=== PATIENT | male | born 1950 | race Caucasian/White ===

== ENCOUNTER 2019-08-27 12:17 | Inpatient (IN) | payer BC ==
[2019-08-27] MEDS ORDERED: LIDOCAINE VISCOUS 2% ORAL/TOP 20 ML UNIT-DOSE CUP MM ONE (12:57)
[2019-08-27] MEDS ORDERED: FAMOTIDINE 20 MG/50 ML IVPB 20 MG/50 ML MG IVPB ONE ×2 (12:57→13:06)
[2019-08-27] MEDS ORDERED: PANTOPRAZOLE SODIUM 40 MG VIAL IVPUSH ONE (12:57)
[2019-08-27] MEDS ORDERED: PANTOPRAZOLE SODIUM 40 MG/100 ML BAG IVPB ONE (13:06)
[2019-08-27] MEDS ORDERED: LIDOCAINE VISCOUS 2% ORAL/TOP 20 ML UNIT-DOSE CUP ONE (13:06)
[2019-08-27] MEDS ORDERED: MAG HYDROX/AL HYDROX/SIMETH 30 ML UNIT-DOSE CUP ONE (13:16)
[2019-08-27 13:21] LABS: BASO % 0.9 % (0-2.0); EOS % 2.4 % (0-4.5); HEMATOCRIT 42.8 % (35.4-49); HEMOGLOBIN 14.4 GM/dL (11.7-16.9); MCH 30.2 pg (25.7-33.7); MCHC 33.6 g/dl (32.0-35.9); MEAN CELL VOLUME 89.9 fl (80-96); MEAN PLT VOLUME 8.5 fl (7.5-11.1); NEUT % 43.7 % (42.8-82.8); PLATELET COUNT 260 K/MM3 (134-434); RBC 4.76 M/mm3 (4.00-5.60); RDW 12.6 % (11.9-15.9); WHITE BLOOD COUNT 9.8 K/mm3 (4.0-10.0)
[2019-08-27] MEDS ORDERED: MAG HYDROX/AL HYDROX/SIMETH 30 ML UNIT-DOSE CUP PO ONE (13:34)
[2019-08-27 13:43] LABS: INR 1.47 (0.83-1.09); PROTHROMBIN TIME (PATIENT) 17.4 SEC (9.7-13.0)
[2019-08-27 13:45] LABS: ACTIVATED PTT 48.1 SECONDS (25.2-36.5)
[2019-08-27 13:50] LABS: ALBUMIN 3.6 g/dl (3.4-5.0); BILIRUBIN,TOTAL 0.5 mg/dL (0.2-1); BLOOD UREA NITROGEN 16.9 mg/dL (7-18); CALCIUM 9.1 mg/dL (8.5-10.1); CREATININE 1.3 mg/dL (0.55-1.3); POTASSIUM 4.2 mmol/L (3.5-5.1); TOT PROT 7.3 g/dl (6.4-8.2)
[2019-08-27 13:53] LABS: MAGNESIUM 2.1 mg/dL (1.8-2.4)
--- NOTE | 2019-08-27 14:10 | PDOC ---
Documentation entered by David Iraheta SCRIBE, acting as scribe for Fawad Ayala MD. Fawad Ayala MD: This documentation has been prepared by the Esequiel glover Daniel, SCRIBE, under my direction and personally reviewed by me in its entirety. I confirm that the documentation accurately reflects all work, treatment, procedures, and medical decision making performed by me. History of Present Illness - General Chief Complaint: Pain, Acute Stated Complaint: ABD PAIN Time Seen by Provider: 08/27/19 12:37 History Source: Patient Exam Limitations: No Limitations - History of Present Illness Initial Comments: 08/27/19 13:08 The patient is a 69 year old male with a past medical history of HTN, HL, afib on eliquis, diverticulitis, and GERD here today for evaluation of 2 weeks epigastric pain. The patient reports that his epigastric pain started 2 weeks ago and began as a mild pain but became worse today rating it as an 8/10 and describes it as localized to the epigastrum, sharp, non radiating and constant. He doesnt note any relation between his pain and eating but does note some nausea and decreased appetite. He notes that he has been taking pepto bismol with mild relief and prevacid. He also notes that he has occasional palpitations and intermittent shortness of breath for two weeks for which his e commerce specialist placed him on a holter monitor. He notes some dark stools but attributes this to his peptobismol use. Patient denies headache, dizziness, focal weakness/numbness. Denies fever, chills. Denies chest pain. Denies vomiting, diarrhea. Denies lower extremity edema. Allergies: levofloxacin PCP: Bishop Castrejon Laundry Tub Maker: Jhonny Mendenhall Past History - Past Medical History Allergies/Adverse Reactions: Allergies Allergy/AdvReac Type Severity Reaction Status Date / Time levofloxacin Allergy Verified 08/27/19 12:27 Home Medications: Ambulatory Orders Atorvastatin Ca [Lipitor] 10 mg PO HS 11/28/11 Ezetimibe [Zetia -] 10 mg PO DAILY 02/17/14 Metronidazole [Flagyl] 500 mg PO Q8H #72 tablet 02/19/14 Guar Gum [Benefiber] 1 each PO BID #0 packet 11/08/15 Lisinopril/Hydrochlorothiazide [Lisinopril-Hctz 20-12.5 mg Tab] 1 each PO DAILY 11/08/15 Metoprolol Succinate [Toprol Xl -] 25 mg PO DAILY 11/08/15 Anemia: No Asthma: No Cancer: Yes (bladder) Cardiac Disorders: Yes (arrythmia, a-fib) CVA: No COPD: Yes CHF: No Dementia: No Diabetes: No GI Disorders: Yes (diverticulitis, GERD) Disorders: No HTN: Yes Hypercholesterolemia: Yes Liver Disease: No Seizures: No Thyroid Disease: No - Surgical History Abdominal Surgery: No (bladder) Appendectomy: No Cardiac Surgery: No Cholecystectomy: No Lung Surgery: No Neurologic Surgery: No Orthopedic Surgery: No - Immunization History Immunization Up to Date: Yes - Psycho Social/Smoking Cessation Hx Smoking Status: Yes Smoking History: Never smoked Have you smoked in the past 12 months: Yes Number of Cigarettes Smoked Daily: 20 Information on smoking cessation initiated: No 'Breaking Loose' booklet given: 02/17/14 Hx Alcohol Use: No Drug/Substance Use Hx: No Substance Use Type: None Hx Substance Use Treatment: No Review of Systems - Review of Systems Able to Perform ROS?: Yes Comments:: 08/27/19 13:08 GENERAL/CONSTITUTIONAL: +decreased appetite. No fever or chills. No weakness. HEAD, EYES, EARS, NOSE AND THROAT: No change in vision. No ear pain or discharge. No sore throat. GASTROINTESTINAL: +nausea. +epigastric pain. No vomiting, diarrhea or constipation. GENITOURINARY: No dysuria, frequency, or change in urination. CARDIOVASCULAR: +shortness of breath. No chest pain. RESPIRATORY: No cough, wheezing, or hemoptysis. MUSCULOSKELETAL: No joint or muscle swelling or pain. No neck or back pain. SKIN: No rash NEUROLOGIC: No headache, vertigo, loss of consciousness, or change in strength/ sensation. ENDOCRINE: No increased thirst. No abnormal weight change. HEMATOLOGIC/LYMPHATIC: No anemia, easy bleeding, or history of blood clots. ALLERGIC/IMMUNOLOGIC: No hives or skin allergy. *Physical Exam - Vital Signs Last Vital Signs Temp Pulse Resp BP Pulse Ox 97.7 F 50 L 18 169/62 100 08/27/19 12:25 08/27/19 12:25 08/27/19 12:25 08/27/19 12:25 08/27/19 12:25 - Physical Exam Comments: 08/27/19 13:09 GENERAL: Awake, alert, and fully oriented, in no acute distress HEAD: No signs of trauma EYES: PERRLA, EOMI, sclera anicteric, conjunctiva clear ENT: Oropharynx clear without exudates. Moist mucosa NECK: Normal ROM, supple, no lymphadenopathy, JVD, or masses LUNGS: Breath sounds equal, clear to auscultation bilaterally. No wheezes, and no crackles HEART: +holter monitor on left upper chest. +bradycardic but regular rhythm, normal S1 and S2, no murmurs, rubs or gallops ABDOMEN: +epigastric tenderness to palpation. Otherwise, soft, normoactive bowel sounds. Neg murphys sign. No guarding, no rebound. No masses EXTREMITIES: Normal range of motion, no edema. No clubbing or cyanosis. No cords , erythema, or tenderness NEUROLOGICAL: Normal speech, cranial nerves intact, equal strength and sensation b/l SKIN: Warm, Dry, normal turgor, no rashes or lesions noted. Heart Score/ECG Review #1 08/27/19 14:03 Twelve-lead EKG was performed and reviewed by me. Sinus bradycardia, rate 47. Left axis deviation. Incomplete right bundle. Sub-[address] depressions in V4 to V6. Artifact in lead V3, but no obvious ST elevations elsewhere. T wave inversions in 3 and aVF. When compared to previous EKG from 2 years ago, no significant changes. ED Treatment Course - LABORATORY CBC & Chemistry Diagram: 08/27/19 12:40 08/27/19 12:40 - ADDITIONAL ORDERS Additional order review: 08/27/19 12:40 RBC 4.76 MCV 89.9 MCHC 33.6 RDW 12.6 MPV 8.5 Neutrophils % 43.7 Lymphocytes % 46.0 H Monocytes % 7.0 Eosinophils % 2.4 Basophils % 0.9 - RADIOLOGY Radiology Studies Ordered: Category Date Time Status CHEST X-RAY PORTABLE* [RAD] Stat Radiology 08/27/19 12:55 Completed ABDOMEN US -LIMITED [US] Stat Ultrasound 08/27/19 13:33 Ordered - Medications Given in the ED: ED Medications Discontinued Medications Generic Name Dose Route Start Last Admin Trade Name Freq PRN Reason Stop Dose Admin Famotidine/Sodium Chloride 20 mg in 50 mls @ 100 mls/hr 08/27/19 12:57 13:18 Pepcid 20 Mg Premixed Ivpb - IVPB 08/27/19 13:26 100 mls/hr ONCE ONE Administration Lidocaine HCl 20 ml 08/27/19 12:57 08/27/19 13:18 Xylocaine 2% Viscous Oral - MM 08/27/19 12:58 20 ml ONCE ONE Administration Pantoprazole Sodium 40 mg 08/27/19 12:57 08/27/19 13:18 Protonix Iv IVPUSH 08/27/19 12:58 40 mg ONCE ONE Administration Medical Decision Making - Medical Decision Making 08/27/19 14:08 69-year-old male with a history of A. fib on Eliquis, hypertension, hyperlipidemia, GERD presents emergency department with 2 weeks of epigastric pain associated with poor appetite with epigastric pain worse today. Vitals within normal limits. Exam with epigastric tenderness palpation. Differential includes peptic ulcer disease versus gastritis versus cholecystitis versus pancreatitis versus acute coronary syndrome. Plan for labs, chest x-ray, right upper quadrant ultrasound, symptom control, reassess. 08/27/19 15:03 Work-up thus far consistent with pancreatitis, [id number] More IV fluids ordered. Case discussed with pattern fitter Dr. Simmons who recommends a CT scan with IV contrast which has been ordered. Patient has been updated of results, declines any pain medications at this time. Case discussed with Dr. Reyna, patient accepted for admission Case discussed in detail with admitting physician including history, physical exam and ancillary studies. Admitting physician has assumed care for the patient, will follow all pending diagnostics and will complete the evaluation and treatment. Discharge - Discharge Information Problems reviewed: Yes Clinical Impression/Diagnosis: Pancreatitis, Abdominal pain, Nausea Condition: Stable - Follow up/Referral Referrals: Bishop Castrejon MD [Primary Care Provider] - - Patient Discharge Instructions - Post Discharge Activity
[2019-08-27] MEDS ORDERED: SODIUM CHLORIDE 1,000 ML IV STA (14:53)
[2019-08-27 15:51] LABS: EPI CELLS 0.1 /HPF (0-5/HPF); HYALINE CASTS 0 /lpf (0-8); URINE APPEARANCE CLEAR; URINE BACTERIA 0.2 /hpf (NEGATIVE); URINE BILIRUBIN NEGATIVE (NEGATIVE); URINE COLOR YELLOW; URINE GLUCOSE (UA) 3+ (NEGATIVE); URINE KETONE NEGATIVE (NEGATIVE); URINE LEUK ESTERASE NEGATIVE (NEGATIVE); URINE NITRITE NEGATIVE (NEGATIVE); URINE PROTEIN NEGATIVE (NEGATIVE); URINE RBC 1 /hpf (0-4); URINE UROBILINOGEN 0.2 mg/dL (0.2-1.0); URINE WBC 0 /hpf (0-5)
[2019-08-27 17:38] VITALS: BMI 33.5
--- NOTE | 2019-08-27 19:58 | HP ---
Admitting History and Physical - Primary Care Physician PCP: Bishop Csatrejon - Admission History of Present Illness: Pt seen/ examined chart reviewed In summary/ Er records The patient is a 69 year old male with a past medical history of HTN, HL, afib on eliquis, diverticulitis, Bladder ca -- s/p TURBt, NIDDM-Diet Controlled and GERD here today for evaluation of 2 weeks epigastric pain. The patient reports that his epigastric pain started 2 weeks ago and began as a mild pain but became worse today rating it as an 8/10 and describes it as localized to the epigastrum, sharp, non radiating and constant. He doesnt note any relation between his pain and eating but does note some nausea and decreased appetite. He notes that he has been taking pepto bismol with mild relief and prevacid. He also notes that he has occasional palpitations and intermittent shortness of breath for two weeks for which his aluminum siding mechanic placed him on a holter monitor. He notes some dark stools but attributes this to his peptobismol use. Patient denies headache, dizziness, focal weakness/numbness. Denies fever, chills. Denies chest pain. Denies vomiting, diarrhea. Denies lower extremity edema. Pt diagnosed with acute pancreatitis kept npo/ fluids/ pain meds given Better History Source: Patient, Medical Record Limitations to Obtaining History: No Limitations - Past Medical History Cardiovascular: Yes: AFIB, HTN, Hyperlipdemia Pulmonary: Yes: COPD Gastrointestinal: Yes: Diverticulosis, Diverticulitis - Smoking History Smoking history: Former smoker Have you smoked in the past 12 months: Yes Aproximately how many cigarettes per day: 20 - Alcohol/Substance Use Hx Alcohol Use: Yes (casual) - Social History History of Recent Travel: No Home Medications - Allergies Allergies/Adverse Reactions: Allergies Allergy/AdvReac Type Severity Reaction Status Date / Time levofloxacin Allergy Verified 08/27/19 12:27 - Home Medications Home Medications: Ambulatory Orders Atorvastatin Ca [Lipitor] 10 mg PO HS 11/28/11 Ezetimibe [Zetia -] 10 mg PO DAILY 02/17/14 Metronidazole [Flagyl] 500 mg PO Q8H #72 tablet 02/19/14 Guar Gum [Benefiber] 1 each PO BID #0 packet 11/08/15 Lisinopril/Hydrochlorothiazide [Lisinopril-Hctz 20-12.5 mg Tab] 1 each PO DAILY 11/08/15 Metoprolol Succinate [Toprol Xl -] 25 mg PO DAILY 11/08/15 Review of Systems - Review of Systems Constitutional: reports: Weakness. denies: Loss of Appetite Eyes: reports: No Symptoms HENT: reports: No Symptoms Neck: reports: No Symptoms Cardiovascular: reports: No Symptoms Respiratory: reports: No Symptoms Gastrointestinal: reports: Abdominal Pain Genitourinary: reports: No Symptoms Psychiatric: reports: No Symptoms Physical Examination Vital Signs: Vital Signs Temperature 98.3 F 08/27/19 17:27 Pulse Rate 48 L 08/27/19 17:27 Respiratory Rate 18 08/27/19 17:27 Blood Pressure 135/77 08/27/19 17:27 O2 Sat by Pulse Oximetry (%) 100 08/27/19 18:03 Constitutional: Yes: No Distress, Calm Eyes: Yes: Conjunctiva Clear Neck: Yes: Supple Cardiovascular: Yes: Regular Rate and Rhythm Respiratory: Yes: CTA Bilaterally Gastrointestinal: Yes: Soft, Tenderness, Epigastrium. No: Tenderness Edema: No Neurological: Yes: Alert Psychiatric: Yes: Alert Labs: CBC, BMP 08/27/19 12:40 08/27/19 12:40 Imaging - Results Chest X-ray: Report Reviewed Cat Scan: Pending EKG: Other Other: Other (u/s - NOted) Problem List - Problems (1) Paroxysmal A-fib Code(s): I48.0 - PAROXYSMAL ATRIAL FIBRILLATION (2) HTN (hypertension) Code(s): I10 - ESSENTIAL (PRIMARY) HYPERTENSION (3) Pancreatitis Code(s): K85.90 - ACUTE PANCREATITIS WITHOUT NECROSIS OR INFECTION, UNSP (4) Diabetes Code(s): E11.9 - TYPE 2 DIABETES MELLITUS WITHOUT COMPLICATIONS (5) Overweight Code(s): E66.3 - OVERWEIGHT (6) Bladder cancer Code(s): C67.9 - MALIGNANT NEOPLASM OF BLADDER, UNSPECIFIED Assessment/Plan Discussed NPO Fluids monitor Labs Monitor bgm Pain control i/v protonix Gi/Surgical Eval Cardiology f/u Pt current home meds are-As per Pt Lipitor 20 mg Multaq 400 mg bid Eliquis 5 mg bid Bystolic 5 mg Azetimibe 10 mg Will follow --
[2019-08-27] MEDS: MORPHINE SULFATE 2 MG/ML VIAL IVPUSH PRN (20:07)
--- NOTE | 2019-08-27 20:08 | HP ---
DATE OF ADMISSION: 08/27/2019 DATE OF DICTATION: 08/27/2019 REFERRING PHYSICIAN: Efraín Andrew MD REASON FOR ADMISSION: Abdominal pain; acute pancreatitis. BRIEF HISTORY: This is a 69-year-old gentleman who presented to the emergency room today with acute onset of rather sharp epigastric pain causing him to double over. The patient, upon closer questioning, had a one- to two-week history of mild generalized dyspepsia that he was managing on his own with Pepto-Bismol and Pepcid. He said the Pepto-Bismol and Pepcid gave him some mild relief. Two days ago, prior to admission, he was noted to be mildly hypotensive with a systolic blood pressure of 100+/60. This was not associated with any acute onset of abdominal pain, nausea or vomiting. The patient denies fever, chills or sweats. He denies extreme nausea last week. He has had mild generalized decreased appetite for the past week, given his dyspeptic-type symptoms. In the emergency room, he underwent an ultrasound of the abdomen that demonstrated no wall thickening or gallstones. The patient is known to have had a similar event approximately 15 years ago, at which time he was told he has sludge within his gallbladder. In the emergency room, he had a white count of 9.8, a normal hemoglobin, as well as a normal platelet count. His chemistries demonstrated a mildly low sodium of 133. His transaminases are within normal limits as are his alkaline phosphatase and bilirubin. He is noted to have a lipase of 1700. His glucose was elevated at 363. A CT scan of the abdomen and pelvis was reviewed. This demonstrated no obvious significant findings. However, the official report is not available at this time. PAST MEDICAL HISTORY: The patient has a history of atrial fibrillation and is on Eliquis. Due to his hypotensive finding several days ago, his novelty maker had placed him on a two-week continuous Holter monitor. The patient denies any palpitations or chest pain in the past several weeks. He has no history of syncope or dizziness. He denies trauma to the abdominal region. He also has a history of hyperlipidemia, hypertension, diverticulitis and peptic ulcer disease. PAST SURGICAL HISTORY: The patient has had a bladder polyp removed via cystoscopy. He has had no abdominal surgeries. ALLERGIES: LEVOFLOXACIN. MEDICATIONS: Lipitor, Zetia, Flagyl, Benefiber, lisinopril and Toprol. 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 He does not smoke. He drinks very rarely. With regard to this attack of pancreatitis, his last drink was approximately one week ago and consisted of one-half glass of wine. PHYSICAL EXAMINATION: Abdomen: The abdomen is mildly obese, soft. There is epigastric tenderness with guarding but no rebound. The remainder of his abdominal examination is unremarkable. IMPRESSION/PLAN: Acute pancreatitis. This is a 69-year-old gentleman admitted with acute pancreatitis. The etiology of his pancreatitis is not entirely clear at this point. The two studies he has had do not demonstrate any evidence of pancreatitis secondary to biliary disease. However, with his history of gallbladder sludge, it is not entirely ruled out. The most likely etiology of his pancreatitis will either be drug-related (medications) or idiopathic. In either event, the patient should be managed for his pancreatitis medically. He clearly does not require any acute surgical intervention. At this point, I do not feel that the patient will need any acute intervention. I think he will continue to improve medically. I will leave it up to the care partner to decide whether or not the patient should undergo an MRCP to further evaluate his gallbladder and also, given his history of sludge 15 years ago, whether or not to consider him for an endoscopic ultrasound at this time as well. I will be available to see this gentleman on a p.r.n. basis. Thank you for allowing me to participate in the care of your patient. Should you have any questions, please feel free to call me directly. Marietta VENEGAS [id number] cc: MD Debbie Hansen DO Tina Mathews, MD
[2019-08-27] MEDS: SODIUM CHLORIDE 1,000 ML IV SCH (20:10)
--- NOTE | 2019-08-28 00:49 | CONS ---
DATE OF CONSULTATION: DATE OF DICTATION: 08/28/2019 GASTROENTEROLOGY CONSULTATION HISTORY OF PRESENT ILLNESS: The patient is a 69-year-old man with a past medical history of hypertension, hyperlipidemia, atrial fibrillation on Eliquis, diverticulitis in the past as well as reflux disease who presents to the hospital with intermittent 2 weeks of epigastric abdominal pain. He states the pain was not radiating, however constant, with some associated nausea. Apparently, he was taking Pepto-Bismol with some relief of his symptoms until today, at which time his epigastric pain worsened, prompting him to come to the emergency room for further evaluation. He denies fevers, chills, change in the bowel habit, and blood in the stool or hematemesis. He states he has a history of being told he had gallbladder sludge, however no history of pancreatitis in the past. No new herbal supplements or medications as an outpatient and does not drink any alcohol. PAST MEDICAL AND SURGICAL HISTORY: As listed in the HPI. ALLERGIES: LEVOFLOXACIN. HOME MEDICATIONS: Reviewed and include Lipitor, Zetia, Benefiber, lisinopril, hydrochlorothiazide, Toprol XL. REVIEW OF SYSTEMS: As per the HPI. PHYSICAL EXAMINATION: Vital Signs: Temperature 98, pulse 49, respiratory rate 12, blood pressure 150/76, pulse oximetry 98% on room air. General: In no acute distress. HEENT: Anicteric sclerae. Cardiovascular: S1, S2, regular rate and rhythm. Lungs: Bilaterally clear to auscultation. Abdomen: Soft, nontender, except to deep palpation in the epigastrium without rebound or guarding. Extremities: No edema. LABORATORY: White blood cell count 9.8, hemoglobin and hematocrit 14/42, MCV 89, platelet count 260, INR 1.47. Sodium 133, potassium 4.2, BUN/creatinine 16/1.3, glucose 363, AST 17, ALT 32, alkaline phosphatase 104, lipase is 1747. Urine: 3+ glucose, 1+ blood. He had abdominal ultrasound, which revealed hepatomegaly, fatty infiltration versus hepatocellular disease, no gallstones were identified, and no biliary duct dilatation. IMPRESSION: Epigastric abdominal pain with an abnormal lipase, most likely consistent with acute pancreatitis. Will need to follow up CT scan. Preliminarily appears to be normal without any biliary disease, which would need to be excluded as an etiology of his pancreatitis. Would also order a lipid profile IGG 4 level and pending results of the CT scan may need further evaluation with a magnetic resonance cholangiopancreatography. Trend liver tests daily as hospitalized. N.p.o. except ice chips. Intravenous fluids at 150 to 175 mL per hour, monitor volume status and weight. Surgery evaluation. Continue proton pump inhibitor therapy. Will follow. DO DEB CESAR/[id number]
[2019-08-28] MEDS: SODIUM CHLORIDE 1,000 ML IV SCH ×2 (03:00→20:11)
[2019-08-28] MEDS: INSULIN SLIDING SCALE (NOVOLOG) 1 VIAL SQ SCH ×2 (06:18→17:14)
[2019-08-28 08:17] LABS: BASO % 0.8 % (0-2.0); EOS % 3.3 % (0-4.5); HEMATOCRIT 39.6 % (35.4-49); HEMOGLOBIN 13.6 GM/dL (11.7-16.9); LYMPH % 46.6 % (8-40); MCH 30.5 pg (25.7-33.7); MCHC 34.3 g/dl (32.0-35.9); MEAN CELL VOLUME 88.8 fl (80-96); MEAN PLT VOLUME 8.7 fl (7.5-11.1); MONO % 5.8 % (3.8-10.2); NEUT % 43.5 % (42.8-82.8); PLATELET COUNT 213 K/MM3 (134-434); RBC 4.46 M/mm3 (4.00-5.60); RDW 12.7 % (11.9-15.9)
[2019-08-28 08:54] LABS: ALBUMIN 3.1 g/dl (3.4-5.0); BILIRUBIN,TOTAL 0.7 mg/dL (0.2-1); BLOOD UREA NITROGEN 11.4 mg/dL (7-18); CALCIUM 8.8 mg/dL (8.5-10.1); CREATININE 0.9 mg/dL (0.55-1.3); POTASSIUM 3.9 mmol/L (3.5-5.1); TOT PROT 6.2 g/dl (6.4-8.2)
--- NOTE | 2019-08-28 09:43 | CON.CARD ---
Consult Consult Specialty:: Cardiology Referred by:: Bishop Castrejon MD Reason for Consultation:: Epigastric pain, palpitations, dyspnea - History of Present Illness Chief Complaint: Epigastric pain, dyspnea, palpitations History of Present Illness: The patient is a 69 year old male with a past medical history of HTN, HL, paroxysmal afib/flutter [id number] on eliquis, diastolic dysfunction, diverticulitis, Bladder ca -- s/p TURBt, NIDDM-Diet Controlled and GERD most recently seen in office 08/25/2019 for postural dizziness, presented for evaluation of 2 weeks epigastric pain. The patient reports that his epigastric pain started 2 weeks ago and began as a mild pain but became worse today rating it as an 8/10 and describes it as localized to the epigastrum, sharp, non radiating and constant. He doesnt note any relation between his pain and eating but does note some nausea and decreased appetite. He notes that he has been taking pepto bismol with mild relief and prevacid. He also notes that he has occasional palpitations and intermittent shortness of breath for two weeks for which his lab coordinator placed him on a holter monitor. He notes some dark stools but attributes this to his peptobismol use. Patient denies headache, dizziness, focal weakness/numbness. Denies fever, chills. Denies chest pain. Denies vomiting, diarrhea. Denies lower extremity edema. Pt diagnosed with acute pancreatitis with elevated amylase, lipase, Ha1c elevated. kept npo/ fluids/ pain meds given and feels improved, abd&pelvic CT readings pending. - History Source History Provided By: Patient Limitations to Obtaining History: No Limitations - Past Medical History Cardio/Vascular: Yes: AFIB, HTN, Hyperlipdemia Pulmonary: Yes: COPD Gastrointestinal: Yes: Diverticulosis, Diverticulitis Additional Medical History: carotid artery stenosis r>left - Alcohol/Substance Use Hx Alcohol Use: Yes (casual) - Smoking History Smoking history: Former smoker Have you smoked in the past 12 months: Yes Aproximately how many cigarettes per day: 20 - Social History History of Recent Travel: No Home Medications - Allergies Allergies/Adverse Reactions: Allergies Allergy/AdvReac Type Severity Reaction Status Date / Time levofloxacin Allergy Verified 08/27/19 12:27 - Home Medications Home Medications: Ambulatory Orders Atorvastatin Ca [Lipitor] 10 mg PO DAILY 11/28/11 Ezetimibe [Zetia -] 10 mg PO DAILY 02/17/14 Apixaban [Eliquis] 2.5 mg PO 08/28/19 Dronedarone HCl [Multaq] 400 mg PO BID 08/28/19 Nebivolol [Bystolic -] 5 mg PO BID 08/28/19 Review of Systems - Review of Systems Gastrointestinal: reports: Abdominal Pain, Nausea, Vomiting Vital Signs: Vital Signs Temperature 97.7 F 08/28/19 05:30 Pulse Rate 58 L 08/28/19 05:30 Respiratory Rate 20 08/28/19 05:30 Blood Pressure 155/87 08/28/19 05:30 O2 Sat by Pulse Oximetry (%) 98 08/27/19 21:00 Constitutional: Yes: No Distress, Calm Neck: Yes: Supple Respiratory: Yes: Regular, CTA Bilaterally Gastrointestinal: Yes: Soft, Hypoactive Bowel Sounds, Tenderness, Epigastrium Cardiovascular: Yes: Regular Rate and Rhythm JVD: No Carotid Bruit: No Heart Sounds: Yes: S1, S2 Edema: No - Other Data Labs, Other Data: CBC, BMP 08/28/19 07:40 08/28/19 07:40 INR, PTT INR 1.47 (0.83-1.09) H 08/27/19 12:40 Troponin, BNP 08/27/19 12:40 Troponin I < 0.02 B-Natriuretic Peptide 131.0 H Troponin, BNP 08/27/19 12:40 Troponin I < 0.02 B-Natriuretic Peptide 131.0 H SB @ 47 LAD similar to previous Ejection Fraction %: LVEF > or = 40 % Imaging - Results Chest X-ray: Report Reviewed (NAD) Problem List - Problems (1) Type 2 diabetes mellitus Code(s): E11.9 - TYPE 2 DIABETES MELLITUS WITHOUT COMPLICATIONS Qualifiers: Diabetes mellitus nursing home insulin use: without regional intermodal truck driver use (2) Combined hyperlipidemia associated with type 2 diabetes mellitus Code(s): E11.69 - TYPE 2 DIABETES MELLITUS WITH OTHER SPECIFIED COMPLICATION; E78.2 - MIXED HYPERLIPIDEMIA (3) Coronary artery calcification Code(s): I25.10 - ATHSCL HEART DISEASE OF [place] CORONARY ARTERY W/O ANG PCTRS; I25.84 - CORONARY ATHEROSCLEROSIS DUE TO CALCIFIED CORONARY LESION (4) HTN (hypertension) Code(s): I10 - ESSENTIAL (PRIMARY) HYPERTENSION Qualifiers: Hypertension type: essential hypertension Qualified Code(s): I10 - Essential (primary) hypertension (5) Pancreatitis Code(s): K85.90 - ACUTE PANCREATITIS WITHOUT NECROSIS OR INFECTION, UNSP Qualifiers: Chronicity: acute (6) Paroxysmal A-fib Code(s): I48.0 - PAROXYSMAL ATRIAL FIBRILLATION (7) Diastolic dysfunction Code(s): I51.89 - OTHER ILL-DEFINED HEART DISEASES Assessment/Plan 03/26/2017 Echo: cLVH LV dilatation, normal LV systolic fxn, normal RV size and fxn, mild LAE, tr-mild MR, tr TR RVSP 44 mmHg MPI: Diaphragmatic attenuation, no ischemia, normal LVEF 65% 04/30-05/30/2017 Cardionet episodes of PAF with RVR (6) Bladder cancer Code(s): C67.9 - MALIGNANT NEOPLASM OF BLADDER, UNSPECIFIED Assessment/Plan 1. Acute pancreatitis 2. PAF -> SR on Eliquis 3. Type 2 DM not well-controlled 4. HTN 5. Hyperlipidemia 6. Diastolic dysfunction 7. Coronary artery calcification with MPI negative for ischemia P:1. NPO, IVF, analgesia, trend amylase, lipase, LFts, empiric abx, protonix, GI and surgery input 2. Continue Lipitor 20 qd, multaq 400 bid, eliquis 5 bid, Bystolic 5 qd, zetia 10 qd, optimize glycemic control 3. F/u abd/pelvic CT, may need f/u MRCP, will have to remove Zio patch then 4. Thank you for consultative opportunity
[2019-08-28] MEDS: PANTOPRAZOLE SODIUM 40 MG VIAL IVPUSH SCH (10:50)
--- NOTE | 2019-08-28 12:40 | EKG ---
Test Reason : Blood Pressure : / mmHG Vent. Rate : 045 BPM Atrial Rate : 045 BPM P-R Int : 150 ms QRS Dur : 106 ms QT Int : 486 ms P-R-T Axes : -02 -42 -45 degrees QTc Int : 420 ms SINUS BRADYCARDIA LEFT AXIS DEVIATION INCOMPLETE RIGHT BUNDLE BRANCH BLOCK ABNORMAL ECG WHEN COMPARED WITH ECG OF 24-OCT-2016 08:49, T WAVE INVERSION NOW EVIDENT IN ANTERIOR LEADS Confirmed by GERI JASSO, SAMY ([id number]) on 08/28/2019 12:39:58 PM Referred By: Confirmed By:SAMY NEVAREZ MD
[2019-08-28] MEDS: APIXABAN 2.5 MG TABLET PO SCH ×2 (13:16→22:25)
[2019-08-28] MEDS: NEBIVOLOL 5 MG TABLET (FP) PO SCH ×2 (13:16→22:25)
--- NOTE | 2019-08-28 15:46 | PN ---
Progress Note (short form) - Note Progress Note: Abdominal pain is better no nausea no diarrhea wants to eat Vital Signs - 24 hr 08/27/19 08/27/19 08/27/19 16:16 17:27 18:03 Temperature 98.3 F Pulse Rate 48 L Pulse Rate [ 52 L Radial] Respiratory 20 18 Rate Blood Pressure 135/77 Blood Pressure 151/52 L [Left Arm] O2 Sat by Pulse 100 100 Oximetry (%) 08/27/19 08/27/19 08/28/19 20:00 21:00 00:00 Temperature 98.6 F Pulse Rate 49 L 52 L Pulse Rate [ Radial] Respiratory 18 20 Rate Blood Pressure 153/76 Blood Pressure [Left Arm] O2 Sat by Pulse 98 Oximetry (%) 08/28/19 08/28/19 08/28/19 05:30 09:00 10:00 Temperature 97.7 F 98 F Pulse Rate 58 L 55 L Pulse Rate [ Radial] Respiratory 20 20 Rate Blood Pressure 155/87 164/86 Blood Pressure [Left Arm] O2 Sat by Pulse 100 Oximetry (%) 08/28/19 12:56 Temperature 98 F Pulse Rate 52 L Pulse Rate [ Radial] Respiratory 18 Rate Blood Pressure 158/81 Blood Pressure [Left Arm] O2 Sat by Pulse Oximetry (%) Current Medications Generic Name Dose Route Start Last Admin Trade Name Freq PRN Reason Stop Dose Admin Apixaban 5 mg 08/28/19 11:45 08/28/19 13:16 Eliquis - PO 5 mg BID TONJA Administration Dronedarone 400 mg 08/28/19 17:30 Multaq - PO BIDWM TONJA Sodium Chloride 1,000 mls @ 120 mls/hr 08/27/19 20:00 08/28/19 03:00 Normal Saline - IV 120 mls/hr ASDIR TONJA Administration Insulin Aspart 1 vial 08/28/19 07:00 08/28/19 06:18 Novolog Vial Sliding Scale - SQ 6 units BIDAC TONJA Administration Protocol Morphine Sulfate 2 mg 08/27/19 16:52 08/27/19 20:07 Morphine Sulfate IVPUSH 2 mg Q6H PRN Administration PAIN LEVEL 6-10 Nebivolol 5 mg 08/28/19 11:45 08/28/19 13:16 Bystolic - PO 5 mg BID TONJA Administration Pantoprazole Sodium 40 mg 08/28/19 10:00 08/28/19 10:50 Protonix Iv IVPUSH 40 mg DAILY TONJA Administration Laboratory Results - last 24 hr 08/27/19 08/27/19 08/28/19 13:37 21:15 05:35 WBC RBC Hgb Hct MCV MCH MCHC RDW Plt Count MPV Absolute Neuts (auto) Neutrophils % Lymphocytes % Monocytes % Eosinophils % Basophils % Nucleated RBC % Sodium Potassium Chloride Carbon Dioxide Anion Gap BUN Creatinine Est GFR (CKD-EPI)AfAm Est GFR (CKD-EPI)NonAf POC Glucometer 265 Random Glucose Hemoglobin A1c % Calcium Total Bilirubin AST ALT Alkaline Phosphatase Total Protein Albumin Triglycerides Total Amylase Lipase TSH Urine Color Yellow Urine Appearance Clear Urine pH 5.0 Ur Specific [place] 1.020 Urine Protein Negative Urine Glucose (UA) 3+ H Urine Ketones Negative Urine Blood 1+ H Urine Nitrite Negative Urine Bilirubin Negative Urine Urobilinogen 0.2 Ur Leukocyte Esterase Negative Urine WBC (Auto) 0 Urine RBC (Auto) 1 Urine Casts (Auto) 0 U Epithel Cells (Auto) 0.1 Urine Bacteria (Auto) 0.2 Blood Type A POSITIVE Antibody Screen Negative 08/28/19 08/28/19 08/28/19 07:40 07:40 07:40 WBC 8.0 RBC 4.46 Hgb 13.6 Hct 39.6 MCV 88.8 MCH 30.5 MCHC 34.3 RDW 12.7 Plt Count 213 MPV 8.7 Absolute Neuts (auto) 3.5 Neutrophils % 43.5 Lymphocytes % 46.6 H Monocytes % 5.8 Eosinophils % 3.3 Basophils % 0.8 Nucleated RBC % 0 Sodium 139 Potassium 3.9 Chloride 105 Carbon Dioxide 28 Anion Gap 7 L BUN 11.4 Creatinine 0.9 Est GFR (CKD-EPI)AfAm 101.36 Est GFR (CKD-EPI)NonAf 87.45 POC Glucometer Random Glucose 236 H Hemoglobin A1c % 11.2 H Calcium 8.8 Total Bilirubin 0.7 AST 15 ALT 28 Alkaline Phosphatase 90 Total Protein 6.2 L Albumin 3.1 L Triglycerides 141 Total Amylase 148 H Lipase 1796 H TSH 1.67 D Urine Color Urine Appearance Urine pH Ur Specific [place] Urine Protein Urine Glucose (UA) Urine Ketones Urine Blood Urine Nitrite Urine Bilirubin Urine Urobilinogen Ur Leukocyte Esterase Urine WBC (Auto) Urine RBC (Auto) Urine Casts (Auto) U Epithel Cells (Auto) Urine Bacteria (Auto) Blood Type Antibody Screen S1 S2 Irregular Lungs clear Abd-soft,tender epigastrium, BS+ No edema PLAN start clears per GI-- has seen him earlier today iv fluids pain control no surgical intervention per surgeon restart [facility] eval-- uncontrolled DM Problem List - Problems (1) Abdominal pain Code(s): R10.9 - UNSPECIFIED ABDOMINAL PAIN (2) Combined hyperlipidemia associated with type 2 diabetes mellitus Code(s): E11.69 - TYPE 2 DIABETES MELLITUS WITH OTHER SPECIFIED COMPLICATION; E78.2 - MIXED HYPERLIPIDEMIA (3) Coronary artery calcification Code(s): I25.10 - ATHSCL HEART DISEASE OF [place] CORONARY ARTERY W/O ANG PCTRS; I25.84 - CORONARY ATHEROSCLEROSIS DUE TO CALCIFIED CORONARY LESION (4) Diabetes Code(s): E11.9 - TYPE 2 DIABETES MELLITUS WITHOUT COMPLICATIONS (5) HTN (hypertension) Code(s): I10 - ESSENTIAL (PRIMARY) HYPERTENSION Qualifiers: Hypertension type: essential hypertension Qualified Code(s): I10 - Essential (primary) hypertension (6) Pancreatitis Code(s): K85.90 - ACUTE PANCREATITIS WITHOUT NECROSIS OR INFECTION, UNSP Qualifiers: Chronicity: acute (7) Paroxysmal A-fib Code(s): I48.0 - PAROXYSMAL ATRIAL FIBRILLATION
--- NOTE | 2019-08-28 16:54 | PN.GI ---
GI Progress Note Subjective: No acute events Abdominal pain improved, however, appetite still diminished Describes 25 pound weight loss over the last few months, some intentional, some Mr. yeboah attributes to the diminished appetitis and early satiety he has been experiencing. He denies dysphagia/odynophagia. CT scan was unremarkable - Objective Vital Signs: Vital Signs Temperature 98 F 08/28/19 12:56 Pulse Rate 52 L 08/28/19 12:56 Respiratory Rate 18 08/28/19 12:56 Blood Pressure 158/81 08/28/19 12:56 O2 Sat by Pulse Oximetry (%) 100 08/28/19 09:00 Constitutional: Calm Eyes: No: Sclera Icterus Cardiovascular: Yes: Bradycardia. No: Murmur Respiratory: Yes: CTA Bilaterally Gastrointestinal Inspection: No: Distention ...Auscultate: Yes: Normoactive Bowel Sounds ...Palpate: Yes: Soft, Tenderness (mild TTP epigastrium) ...Percussion: No: Tympanitic Edema: No (No LE edema) Neurological: Yes: Alert Labs: CBC, BMP 08/28/19 07:40 08/28/19 07:40 INR, PTT INR 1.47 (0.83-1.09) H 08/27/19 12:40 Hepatic Panel Total Bilirubin 0.7 mg/dL (0.2-1) 08/28/19 07:40 AST 15 U/L (15-37) 08/28/19 07:40 ALT 28 U/L (13-61) 08/28/19 07:40 Alkaline Phosphatase 90 U/L (45-117) 08/28/19 07:40 Albumin 3.1 g/dl (3.4-5.0) L 08/28/19 07:40 - ....Imaging Cat Scan: Report Reviewed, Image Reviewed Problem List - Problems (1) Abdominal pain Assessment/Plan: Upper abdominal pain along with associated early satiety Clinically improving and tolerating clears CT scan revealed a normal pancreas. Not suggestive of a significant pancreatitis, however, mild pancreatitis may not necessarily show up on CT study Triglycerides normal Mr. Yeboah also wih a Hgb A1C of 11.2 with elevated blood glucose >250 on admission. In setting of uncontrolled DM II, component of gastroparesis could also be playing a role. Ordered UGIS for AM as part evaluation of early satiety. Needs glycemic control Continue PPI for now Code(s): R10.9 - UNSPECIFIED ABDOMINAL PAIN
[2019-08-28] MEDS: DRONEDARONE HCL 400 MG TAB (FP) PO SCH (17:13)
[2019-08-28] MEDS: LOSARTAN POTASSIUM 25 MG TABLET PO SCH (20:11)
[2019-08-28] MEDS: ATORVASTATIN CA 10 MG TABLET (FP) PO SCH (22:25)
[2019-08-28] MEDS: MORPHINE SULFATE 2 MG/ML VIAL IVPUSH PRN (22:26)
[2019-08-29] MEDS: INSULIN SLIDING SCALE (NOVOLOG) 1 VIAL SQ SCH ×4 (06:36→21:28)
[2019-08-29] MEDS ORDERED: hydrALAZINE HCL 20 MG/ML VIAL IVPUSH ONE (06:36)
[2019-08-29 07:00] LABS: INR 1.62 (0.83-1.09); PROTHROMBIN TIME (PATIENT) 19.2 SEC (9.7-13.0)
[2019-08-29 07:02] LABS: ACTIVATED PTT 44.3 SECONDS (25.2-36.5)
[2019-08-29 07:12] LABS: CHOLESTEROL 109 mg/dL (50-200); HDL CHOLESTEROL 38 mg/dL (40-60); LDL CHOLESTEROL (ONLY SJRH) 69 mg/dL (5-100); TRIGLYCERIDES 118 mg/dL (0-150)
[2019-08-29] MEDS ORDERED: PT OWN MED DRAWER 7, Y5N ONE ×2 (08:41→09:40)
[2019-08-29] MEDS: DRONEDARONE HCL 400 MG TAB (FP) PO SCH ×2 (10:21→17:34)
[2019-08-29] MEDS: PANTOPRAZOLE SODIUM 40 MG VIAL IVPUSH SCH (10:22)
[2019-08-29] MEDS: APIXABAN 2.5 MG TABLET PO SCH ×2 (10:22→21:22)
[2019-08-29] MEDS: LOSARTAN POTASSIUM 25 MG TABLET PO SCH (10:23)
[2019-08-29] MEDS: NEBIVOLOL 5 MG TABLET (FP) PO SCH ×2 (10:33→21:22)
--- NOTE | 2019-08-29 10:38 | PN ---
Progress Note (short form) - Note Progress Note: Pt seen/ examined chart reviewed awake/ comfortable just came from upper gi series Vital Signs Temp 18 F L 08/29/19 08:36 Pulse 48 L 08/29/19 10:16 Resp 18 08/29/19 10:16 BP 165/74 08/29/19 10:16 Pulse Ox 96 08/28/19 20:52 Intake & Output 08/28/19 08/28/19 08/29/19 11:59 23:59 11:59 Intake Total 1440 1200 Balance 1440 1200 Intake: IV 1440 960 Normal Saline - 1,000 ml 1440 960 @ 120 mls/hr IV ASDIR [facility] Rx#:[id number] Oral 240 Other: Voiding Method Toilet Toilet # Unmeasured Voids Void 2 2 Bowel Movement No Active Medications Apixaban (Eliquis -) 5 mg PO BID [facility] Last Admin: 08/29/19 10:22 Dose: 5 mg Atorvastatin Calcium (Lipitor -) 10 mg PO HS [facility] Last Admin: 08/28/19 22:25 Dose: 10 mg Dronedarone (Multaq -) 400 mg PO BIDWM [facility] Last Admin: 08/29/19 10:21 Dose: 400 mg Sodium Chloride (Normal Saline -) 1,000 mls @ 120 mls/hr IV ASDIR [facility] Last Admin: 08/28/19 20:11 Dose: 120 mls/hr Insulin Aspart (Novolog Vial Sliding Scale -) 1 vial SQ BIDAC [facility]; Protocol Last Admin: 08/29/19 06:36 Dose: Not Given Insulin Detemir (Levemir Vial) 5 units SQ [facility] Losartan Potassium (Cozaar -) 50 mg PO DAILY [facility] Morphine Sulfate (Morphine Sulfate) 2 mg IVPUSH Q6H PRN PRN Reason: PAIN LEVEL 6-10 Last Admin: 08/28/19 22:26 Dose: 2 mg Nebivolol (Bystolic -) 5 mg PO BID [facility] Last Admin: 08/29/19 10:33 Dose: Not Given Pantoprazole Sodium (Protonix Iv) 40 mg IVPUSH DAILY [facility] Last Admin: 08/29/19 10:22 Dose: 40 mg Today - Labs- Not ordered Physical S1 S2 Irregular Lungs clear Abd-soft,tender epigastrium,-- Improved BS+ No edema PLAN clears per GI- Advance slowly iv fluids pain control no surgical intervention per surgeon restarted [facility] eval-- uncontrolled DM F/u UGISeries Will follow Hold Bystolic due to Bradycardia Increase Cozzar Monitor labs Add Basal Insulin Will follow D/w Dr. Castillo also Problem List - Problems (1) Paroxysmal A-fib Code(s): I48.0 - PAROXYSMAL ATRIAL FIBRILLATION (2) HTN (hypertension) Code(s): I10 - ESSENTIAL (PRIMARY) HYPERTENSION Qualifiers: Hypertension type: essential hypertension Qualified Code(s): I10 - Essential (primary) hypertension (3) Pancreatitis Code(s): K85.90 - ACUTE PANCREATITIS WITHOUT NECROSIS OR INFECTION, UNSP Qualifiers: Chronicity: acute (4) Diabetes Code(s): E11.9 - TYPE 2 DIABETES MELLITUS WITHOUT COMPLICATIONS (5) Overweight Code(s): E66.3 - OVERWEIGHT (6) Bladder cancer Code(s): C67.9 - MALIGNANT NEOPLASM OF BLADDER, UNSPECIFIED
[2019-08-29 12:00] LABS: EOS % 2.7 % (0-4.5); HEMATOCRIT 40.5 % (35.4-49); HEMOGLOBIN 13.4 GM/dL (11.7-16.9); LYMPH % 43.1 % (8-40); MCH 30.2 pg (25.7-33.7); MCHC 33.1 g/dl (32.0-35.9); MEAN CELL VOLUME 91.3 fl (80-96); MEAN PLT VOLUME 9.3 fl (7.5-11.1); MONO % 5.8 % (3.8-10.2); NEUT % 47.4 % (42.8-82.8); PLATELET COUNT 196 K/MM3 (134-434); RBC 4.44 M/mm3 (4.00-5.60); WHITE BLOOD COUNT 8.9 K/mm3 (4.0-10.0)
[2019-08-29 12:32] LABS: BILIRUBIN,TOTAL 0.6 mg/dL (0.2-1); CALCIUM 8.7 mg/dL (8.5-10.1); CREATININE 0.8 mg/dL (0.55-1.3); POTASSIUM 4.1 mmol/L (3.5-5.1)
[2019-08-29] MEDS ORDERED: LOSARTAN POTASSIUM 25 MG TABLET PO ONE (13:00)
[2019-08-29] MEDS: SODIUM CHLORIDE 1,000 ML IV SCH ×2 (13:35→21:23)
--- NOTE | 2019-08-29 16:05 | PN ---
Progress Note, Physician History of Present Illness: UGI series normal, epigastric pain improved, tolerating solid foods. - Current Medication List Current Medications: Active Medications Apixaban (Eliquis -) 5 mg PO BID [facility] Last Admin: 08/29/19 10:22 Dose: 5 mg Atorvastatin Calcium (Lipitor -) 10 mg PO HS [facility] Last Admin: 08/28/19 22:25 Dose: 10 mg Dronedarone (Multaq -) 400 mg PO BIDWM [facility] Last Admin: 08/29/19 10:21 Dose: 400 mg Sodium Chloride (Normal Saline -) 1,000 mls @ 120 mls/hr IV ASDIR [facility] Last Admin: 08/29/19 13:35 Dose: 120 mls/hr Insulin Aspart (Novolog Vial Sliding Scale -) 1 vial SQ BIDAC [facility]; Protocol Last Admin: 08/29/19 06:36 Dose: Not Given Insulin Detemir (Levemir Vial) 5 units SQ HS [facility] Losartan Potassium (Cozaar -) 50 mg PO DAILY [facility] Morphine Sulfate (Morphine Sulfate) 2 mg IVPUSH Q6H PRN PRN Reason: PAIN LEVEL 6-10 Last Admin: 08/28/19 22:26 Dose: 2 mg Nebivolol (Bystolic -) 5 mg PO BID [facility] Last Admin: 08/29/19 10:33 Dose: Not Given Pantoprazole Sodium (Protonix Iv) 40 mg IVPUSH DAILY [facility] Last Admin: 08/29/19 10:22 Dose: 40 mg - Objective Vital Signs: Vital Signs Temperature 97.8 F 08/29/19 12:26 Pulse Rate 47 L 08/29/19 12:26 Respiratory Rate 16 08/29/19 12:26 Blood Pressure 164/77 08/29/19 12:26 O2 Sat by Pulse Oximetry (%) 97 08/29/19 09:00 Constitutional: Yes: No Distress, Calm Neck: Yes: Supple Cardiovascular: Yes: Regular Rate and Rhythm Respiratory: Yes: Regular, CTA Bilaterally Gastrointestinal: Yes: Normal Bowel Sounds, Soft Edema: No Labs: CBC, BMP 08/29/19 06:20 08/29/19 06:20 INR, PTT INR 1.62 (0.83-1.09) H 08/29/19 06:20 Problem List - Problems (1) Type 2 diabetes mellitus Code(s): E11.9 - TYPE 2 DIABETES MELLITUS WITHOUT COMPLICATIONS Qualifiers: Diabetes mellitus emt intermediate insulin use: without fpc use (2) Combined hyperlipidemia associated with type 2 diabetes mellitus Code(s): E11.69 - TYPE 2 DIABETES MELLITUS WITH OTHER SPECIFIED COMPLICATION; E78.2 - MIXED HYPERLIPIDEMIA (3) Coronary artery calcification Code(s): I25.10 - ATHSCL HEART DISEASE OF [place] CORONARY ARTERY W/O ANG PCTRS; I25.84 - CORONARY ATHEROSCLEROSIS DUE TO CALCIFIED CORONARY LESION (4) HTN (hypertension) Code(s): I10 - ESSENTIAL (PRIMARY) HYPERTENSION Qualifiers: Hypertension type: essential hypertension Qualified Code(s): I10 - Essential (primary) hypertension (5) Pancreatitis Code(s): K85.90 - ACUTE PANCREATITIS WITHOUT NECROSIS OR INFECTION, UNSP Qualifiers: Chronicity: acute (6) Paroxysmal A-fib Code(s): I48.0 - PAROXYSMAL ATRIAL FIBRILLATION (7) Diastolic dysfunction Code(s): I51.89 - OTHER ILL-DEFINED HEART DISEASES Assessment/Plan 03/26/2017 Echo: cLVH LV dilatation, normal LV systolic fxn, normal RV size and fxn, mild LAE, tr-mild MR, tr TR RVSP 44 mmHg MPI: Diaphragmatic attenuation, no ischemia, normal LVEF 65% 04/30-05/30/2017 Cardionet episodes of PAF with RVR (6) Bladder cancer Code(s): C67.9 - MALIGNANT NEOPLASM OF BLADDER, UNSPECIFIED Assessment/Plan 1. Acute pancreatitis 2. PAF -> SR on Eliquis 3. Type 2 DM not well-controlled 4. HTN 5. Hyperlipidemia 6. Diastolic dysfunction 7. Coronary artery calcification with MPI negative for ischemia P:1. IVF, analgesia, lipase, LFts resolving, protonix, GI and surgery input 2. Continue Lipitor 20 qd, multaq 400 bid, eliquis 5 bid, Bystolic 5 bid, zetia 10 qd, losartan 50 qd, optimize glycemic control with insulin 3. Abd/pelvic CT shows normal pancreas, may need f/u MRCP, will have to remove Zio patch then
--- NOTE | 2019-08-29 16:46 | CONSULT ---
Consult Consult Specialty:: endocrine Referred by:: christianne coleman MD Reason for Consultation:: diabetes mellitus type 2 - History of Present Illness Chief Complaint: nausea/abdominal pain History of Present Illness: 69 year old male with a past medical history of DMT2, HTN, HL, afib on eliquis, diverticulitis, and GERD presented with epigastric pain that started 2 weeks ago and began as a mild pain but became worse today rating it as an 8/10 and describes it as localized to the epigastrum, sharp, non radiating and has had polyuria and decreased appetite.denies fever,cough,blurred vision,or weight loss.he had been diet controlled diabetic,till recent bs found 354mg/dl - Past Medical History Cardio/Vascular: Yes: AFIB, HTN, Hyperlipdemia Pulmonary: Yes: COPD Gastrointestinal: Yes: Diverticulosis, Diverticulitis Additional Medical History: carotid artery stenosis r>left - Alcohol/Substance Use Hx Alcohol Use: Yes (casual) - Smoking History Smoking history: Former smoker Have you smoked in the past 12 months: Yes Aproximately how many cigarettes per day: 20 - Social History History of Recent Travel: No Home Medications - Allergies Allergies/Adverse Reactions: Allergies Allergy/AdvReac Type Severity Reaction Status Date / Time levofloxacin Allergy Verified 08/27/19 12:27 - Home Medications Home Medications: Ambulatory Orders Atorvastatin Ca [Lipitor] 10 mg PO DAILY 11/28/11 Ezetimibe [Zetia -] 10 mg PO DAILY 02/17/14 Apixaban [Eliquis] 2.5 mg PO 08/28/19 Dronedarone HCl [Multaq] 400 mg PO BID 08/28/19 Nebivolol [Bystolic -] 5 mg PO BID 08/28/19 Review of Systems - Review of Systems Constitutional: reports: Lethargy, Weakness Eyes: reports: No Symptoms HENT: reports: No Symptoms Neck: reports: No Symptoms Cardiovascular: reports: Shortness of Breath Respiratory: reports: Exercise Intolerance, SOB on Exertion Gastrointestinal: reports: Bloating, Constipation, Nausea Genitourinary: reports: No Symptoms Breasts: reports: No Symptoms Reported Musculoskeletal: reports: No Symptoms Integumentary: reports: No Symptoms Neurological: reports: Weakness Endocrine: reports: No Symptoms Physical Exam Vital Signs: Vital Signs Temperature 98.4 F 08/29/19 14:00 Pulse Rate 76 08/29/19 14:00 Respiratory Rate 18 08/29/19 14:00 Blood Pressure 127/76 08/29/19 14:00 O2 Sat by Pulse Oximetry (%) 97 08/29/19 09:00 Constitutional: Yes: Calm Eyes: Yes: EOM Intact HENT: Yes: Normocephalic Neck: Yes: Trachea Midline Respiratory: Yes: CTA Bilaterally Gastrointestinal: Yes: Hypoactive Bowel Sounds, Tenderness, Epigastrium ...Rectal Exam: Yes: Deferred Renal/: Yes: WNL Breast(s): Yes: WNL Musculoskeletal: Yes: WNL Extremities: Yes: WNL Edema: No Neurological: Yes: Alert, Oriented Labs: CBC, BMP 08/29/19 06:20 08/29/19 06:20 Problem List - Problems (1) Abdominal pain Problems reviewed: Yes Code(s): R10.9 - UNSPECIFIED ABDOMINAL PAIN (2) Bladder cancer Problems reviewed: Yes Code(s): C67.9 - MALIGNANT NEOPLASM OF BLADDER, UNSPECIFIED (3) Combined hyperlipidemia associated with type 2 diabetes mellitus Problems reviewed: Yes Code(s): E11.69 - TYPE 2 DIABETES MELLITUS WITH OTHER SPECIFIED COMPLICATION; E78.2 - MIXED HYPERLIPIDEMIA (4) Coronary artery calcification Code(s): I25.10 - ATHSCL HEART DISEASE OF [place] CORONARY ARTERY W/O ANG PCTRS; I25.84 - CORONARY ATHEROSCLEROSIS DUE TO CALCIFIED CORONARY LESION (5) Diabetes Problems reviewed: Yes Code(s): E11.9 - TYPE 2 DIABETES MELLITUS WITHOUT COMPLICATIONS (6) Diastolic dysfunction Code(s): I51.89 - OTHER ILL-DEFINED HEART DISEASES (7) HTN (hypertension) Code(s): I10 - ESSENTIAL (PRIMARY) HYPERTENSION Qualifiers: Hypertension type: essential hypertension Qualified Code(s): I10 - Essential (primary) hypertension (8) Nausea Code(s): R11.0 - NAUSEA Assessment/Plan Current Active Problems Abdominal pain (Acute) Bladder cancer (Acute) Combined hyperlipidemia associated with type 2 diabetes mellitus (Acute) Coronary artery calcification (Acute) Diabetes (Acute) Diastolic dysfunction (Acute) HTN (hypertension) (Acute) Nausea (Acute) Overweight (Acute) Pancreatitis (Acute) Paroxysmal A-fib (Acute) Type 2 diabetes mellitus (Acute) Current Medications Generic Name Dose Route Start Last Admin Trade Name Freq PRN Reason Stop Dose Admin Apixaban 5 mg 08/28/19 11:45 08/29/19 10:22 Eliquis - PO 5 mg BID TONJA Administration Atorvastatin Calcium 10 mg 08/28/19 22:00 08/28/19 22:25 Lipitor - PO 10 mg HS TONJA Administration Dronedarone 400 mg 08/28/19 17:30 08/29/19 10:21 Multaq - PO 400 mg BIDWM TONJA Administration Sodium Chloride 1,000 mls @ 120 mls/hr 08/27/19 20:00 08/29/19 13:35 Normal Saline - IV 120 mls/hr ASDIR TONJA Administration Insulin Aspart 1 vial 08/29/19 22:00 Novolog Vial Sliding Scale - SQ ACHS [facility] Protocol Insulin Detemir 12 units 08/29/19 22:00 Levemir Vial SQ BID@0700,2200 [facility] Losartan Potassium 50 mg 08/30/19 10:00 Cozaar - PO DAILY [facility] Morphine Sulfate 2 mg 08/27/19 16:52 08/28/19 22:26 Morphine Sulfate IVPUSH 2 mg Q6H PRN Administration PAIN LEVEL 6-10 Nebivolol 5 mg 08/28/19 11:45 08/29/19 10:33 Bystolic - PO Not Given BID [facility] Pantoprazole Sodium 40 mg 08/28/19 10:00 08/29/19 10:22 Protonix Iv IVPUSH 40 mg DAILY TONJA Administration Laboratory Results - last 24 hr 08/28/19 08/28/19 08/29/19 17:09 22:24 06:20 WBC RBC Hgb Hct MCV MCH MCHC RDW Plt Count MPV Absolute Neuts (auto) Neutrophils % Lymphocytes % Monocytes % Eosinophils % Basophils % Nucleated RBC % PT with INR INR PTT (Actin FS) Sodium Potassium Chloride Carbon Dioxide Anion Gap BUN Creatinine Est GFR (CKD-EPI)AfAm Est GFR (CKD-EPI)NonAf POC Glucometer 188 168 Random Glucose Calcium Total Bilirubin AST ALT Alkaline Phosphatase C-Reactive Protein Total Protein Albumin Triglycerides 118 Cholesterol 109 Total LDL Cholesterol 69 HDL Cholesterol 38 L Lipase 08/29/19 08/29/19 08/29/19 06:20 06:20 06:20 WBC 8.9 RBC 4.44 Hgb 13.4 Hct 40.5 MCV 91.3 MCH 30.2 MCHC 33.1 RDW 13.0 Plt Count 196 MPV 9.3 Absolute Neuts (auto) 4.2 Neutrophils % 47.4 Lymphocytes % 43.1 H Monocytes % 5.8 Eosinophils % 2.7 Basophils % 1.0 Nucleated RBC % 0 PT with INR 19.20 H INR 1.62 H PTT (Actin FS) 44.3 H Sodium 139 Potassium 4.1 Chloride 106 Carbon Dioxide 24 Anion Gap 9 BUN 8.0 Creatinine 0.8 Est GFR (CKD-EPI)AfAm 106.38 Est GFR (CKD-EPI)NonAf 91.79 POC Glucometer Random Glucose 208 H Calcium 8.7 Total Bilirubin 0.6 AST 16 ALT 23 Alkaline Phosphatase 84 C-Reactive Protein 1.0 H Total Protein 6.0 L Albumin 3.0 L Triglycerides Cholesterol Total LDL Cholesterol HDL Cholesterol Lipase 1586 H 08/29/19 06:23 WBC RBC Hgb Hct MCV MCH MCHC RDW Plt Count MPV Absolute Neuts (auto) Neutrophils % Lymphocytes % Monocytes % Eosinophils % Basophils % Nucleated RBC % PT with INR INR PTT (Actin FS) Sodium Potassium Chloride Carbon Dioxide Anion Gap BUN Creatinine Est GFR (CKD-EPI)AfAm Est GFR (CKD-EPI)NonAf POC Glucometer 206 Random Glucose Calcium Total Bilirubin AST ALT Alkaline Phosphatase C-Reactive Protein Total Protein Albumin Triglycerides Cholesterol Total LDL Cholesterol HDL Cholesterol Lipase plan: bgm qid novolog scale nutrition consult diabetic teaching injection levemir 12 units bid
--- NOTE | 2019-08-29 17:09 | PN.GI ---
GI Progress Note Subjective: Pain improved, however, still describes mid abdominal discomfort Normal UGIS - Objective Vital Signs: Vital Signs Temperature 98.4 F 08/29/19 14:00 Pulse Rate 76 08/29/19 14:00 Respiratory Rate 18 08/29/19 14:00 Blood Pressure 127/76 08/29/19 14:00 O2 Sat by Pulse Oximetry (%) 97 08/29/19 09:00 Constitutional: Calm Eyes: No: Sclera Icterus Cardiovascular: Yes: Bradycardia. No: Murmur Respiratory: Yes: CTA Bilaterally Gastrointestinal Inspection: No: Distention ...Auscultate: Yes: Normoactive Bowel Sounds ...Palpate: Yes: Soft, Tenderness (Mild TTP mid abdomen). No: Guarding ...Percussion: No: Tympanitic Edema: No (No LE edema) Neurological: Yes: Alert Labs: CBC, BMP 08/29/19 06:20 08/29/19 06:20 INR, PTT INR 1.62 (0.83-1.09) H 08/29/19 06:20 Hepatic Panel Total Bilirubin 0.6 mg/dL (0.2-1) 08/29/19 06:20 AST 16 U/L (15-37) 08/29/19 06:20 ALT 23 U/L (13-61) 08/29/19 06:20 Alkaline Phosphatase 84 U/L (45-117) 08/29/19 06:20 Albumin 3.0 g/dl (3.4-5.0) L 08/29/19 06:20 Problem List - Problems (1) Abdominal pain Assessment/Plan: Some improvement For complete assessment, would consider MRI of the abdomen with pancreatic protocol with MRCP. If pain not continuing to improve, would discontinue the cardiac monitoring device he is wearing and do it sooner rather than later, otherwise would perform after monitoring has been completed next sunday (I spoke with Dr. Mendenhall regarding this. It is being performed due to bradycardia with RBBB). Advanced diet for dinner IV hydration Glycemic control. Evaluated by Dr. Wang Changed PPI to protonix 20mg daily Unclear significance of lymphocytosis. ? viral etiology. If persists, consider heme evaluation Code(s): R10.9 - UNSPECIFIED ABDOMINAL PAIN
[2019-08-29] MEDS: MORPHINE SULFATE 2 MG/ML VIAL IVPUSH PRN (17:47)
[2019-08-29] MEDS: ATORVASTATIN CA 10 MG TABLET (FP) PO SCH (21:22)
[2019-08-29] MEDS ORDERED: ACETAMINOPHEN 325 MG TABLET (FP) PO ONE (21:43)
[2019-08-29] MEDS ORDERED: ACETAMINOPHEN 325 MG TABLET (FP) ONE (21:46)
[2019-08-29] MEDS ORDERED: INSULIN (LEVEMIR) 100 UNITS/ML UNITS SQ SCH ×2 (22:00)
[2019-08-30] MEDS ORDERED: ACETAMINOPHEN 325 MG TABLET (FP) PO ONE (05:49)
--- NOTE | 2019-08-30 07:09 | PN ---
Progress Note (short form) - Note Progress Note: Chief Complaint: Events noted, notes reviewed, complaining of nausea, complaining of headache, elevated blood pressure noted this AM, denies any chest pain or dyspnea History of Present Illness: Seen and examined on telemetry. Events noted, notes reviewed, complaining of nausea, complaining of headache, elevated blood pressure noted this AM, denies any chest pain or dyspnea IV saline infusion in situ - Current Medication List Current Medications Apixaban (Eliquis -) 5 mg PO BID [facility] Last Admin: 08/29/19 21:22 Dose: 5 mg Atorvastatin Calcium (Lipitor -) 10 mg PO HS [facility] Last Admin: 08/29/19 21:22 Dose: 10 mg Dronedarone (Multaq -) 400 mg PO BIDWM [facility] Last Admin: 08/29/19 17:34 Dose: 400 mg Sodium Chloride (Normal Saline -) 1,000 mls @ 120 mls/hr IV ASDIR [facility] Last Admin: 08/29/19 21:23 Dose: 120 mls/hr Insulin Aspart (Novolog Vial Sliding Scale -) 1 vial SQ ACHS [facility]; Protocol Insulin Detemir (Levemir Vial) 7 units SQ BID@0700,2200 [facility] Losartan Potassium (Cozaar -) 50 mg PO DAILY [facility] Morphine Sulfate (Morphine Sulfate) 2 mg IVPUSH Q6H PRN PRN Reason: PAIN LEVEL 6-10 Last Admin: 08/29/19 17:47 Dose: 2 mg Nebivolol (Bystolic -) 5 mg PO BID [facility] Last Admin: 08/29/19 21:22 Dose: 5 mg Pantoprazole Sodium (Protonix -) 20 mg PO DAILY [facility] Review of Systems Cardiovascular: As noted above Respiratory: denies: Cough or Sputum Production Gastrointestinal: denies: Vomiting, Diarrhea, Constipation or Abdominal Discomfort but reports Nausea Musculoskeletal: No Symptoms Reported Endocrine: No Symptoms Reported` - Objective Vital Signs: Last Vital Signs Temp Pulse Resp BP Pulse Ox 97.9 F 57 L 16 182/80 H 98 08/30/19 05:41 08/30/19 05:41 08/30/19 05:41 08/30/19 05:41 08/29/19 21:00 Intake & Output 08/27/19 08/28/19 08/29/19 08/30/19 23:59 23:59 23:59 23:59 Intake Total 125 2640 2280 Balance 125 2640 2280 Weight 234 lb Neck: Supple Negative JVD No Bruit Respiratory: Clear to A&P Bilaterally Cardiovascular: S1 S2 Regular Rate and Rhythm Gastrointestinal: Soft Benign Normal Bowel Sounds Ext: No Edema Labs: CBC, BMP 08/30/19 07:05 08/30/19 07:05 CBC, BMP 08/29/19 06:20 08/29/19 06:20 Hepatic Panel Total Bilirubin 0.6 mg/dL (0.2-1) 08/29/19 06:20 AST 16 U/L (15-37) 08/29/19 06:20 ALT 23 U/L (13-61) 08/29/19 06:20 Alkaline Phosphatase 84 U/L (45-117) 08/29/19 06:20 Albumin 3.0 g/dl (3.4-5.0) L 08/29/19 06:20 INR, PTT INR 1.62 (0.83-1.09) H 08/29/19 06:20 Assessment/Plan ASSESSMENT: 1. Acute pancreatitis, etiology of which unclear- nausea 2. PAF currently in sinus rhythm [id number] score of 3 on Eliquis 3. Coronary artery disease/visual coronary artery calcification with negative MPI study for ischemia 4. Diastolic dysfunction with clinical class 0 NYHA classification LV failure 5. HTN labile blood pressure, uncontrolled- headache 6. NIDDM not well-controlled 7. Hyperlipidemia PLAN: 1. D/C IVF 2. Continue Bystolic with caution, sinus bradycardia 3. Continue Multaq with caution, sinus bradycardia 4 Continue Cozaar and further titrate dosage 5. Add Norvasc if blood pressure remains not at goal 6. Continue Lipitor and Zetia 7. Continue Eliquis 8. If MRI/MRCP is needed, will have to remove Zio patch monitor Jhonny Mendenhall M.D.
[2019-08-30] MEDS: INSULIN (LEVEMIR) 100 UNITS/ML UNITS SQ SCH ×2 (07:15→21:46)
[2019-08-30] MEDS: INSULIN SLIDING SCALE (NOVOLOG) 1 VIAL SQ SCH ×4 (07:16→21:46)
[2019-08-30 07:45] LABS: BASO % 0.6 % (0-2.0); EOS % 1.4 % (0-4.5); HEMATOCRIT 38.4 % (35.4-49); HEMOGLOBIN 13.2 GM/dL (11.7-16.9); LYMPH % 38.4 % (8-40); MCH 30.6 pg (25.7-33.7); MCHC 34.4 g/dl (32.0-35.9); MEAN CELL VOLUME 88.9 fl (80-96); MEAN PLT VOLUME 8.7 fl (7.5-11.1); MONO % 6.2 % (3.8-10.2); NEUT % 53.4 % (42.8-82.8); PLATELET COUNT 202 K/MM3 (134-434); RBC 4.32 M/mm3 (4.00-5.60); RDW 12.6 % (11.9-15.9); WHITE BLOOD COUNT 7.6 K/mm3 (4.0-10.0)
[2019-08-30 08:13] LABS: INR 1.54 (0.83-1.09); PROTHROMBIN TIME (PATIENT) 18.2 SEC (9.7-13.0)
[2019-08-30 08:22] LABS: ALBUMIN 2.9 g/dl (3.4-5.0); BILIRUBIN,TOTAL 0.7 mg/dL (0.2-1); BLOOD UREA NITROGEN 6.8 mg/dL (7-18); CALCIUM 8.4 mg/dL (8.5-10.1); CREATININE 0.8 mg/dL (0.55-1.3); POTASSIUM 3.6 mmol/L (3.5-5.1); TOT PROT 6.1 g/dl (6.4-8.2)
[2019-08-30] MEDS ORDERED: PT OWN MED DRAWER 7, Y5N ONE ×2 (08:50→17:19)
[2019-08-30] MEDS: NEBIVOLOL 5 MG TABLET (FP) PO SCH ×2 (09:40→21:42)
[2019-08-30] MEDS: APIXABAN 2.5 MG TABLET PO SCH ×2 (09:40→21:42)
[2019-08-30] MEDS: DRONEDARONE HCL 400 MG TAB (FP) PO SCH ×2 (09:41→18:17)
[2019-08-30] MEDS ORDERED: PANTOPRAZOLE 20 MG TABLET (FP) PO SCH (10:00)
[2019-08-30] MEDS ORDERED: LOSARTAN POTASSIUM 50 MG TABLET (FP) PO SCH (10:00)
[2019-08-30] MEDS ORDERED: ACETAMINOPHEN 500 MG TABLET (FP) PO ONE (10:15)
[2019-08-30] MEDS ORDERED: METOCLOPRAMIDE HCL INJECTION 10 MG/2 ML VIAL IVPUSH ONE (10:15)
[2019-08-30] MEDS ORDERED: METOCLOPRAMIDE HCL INJECTION 10 MG/2 ML VIAL IVPUSH PRN (10:16)
[2019-08-30] MEDS: HYDROCHLOROTHIAZIDE 12.5 MG CAPSULE (FP) PO SCH (10:28)
[2019-08-30] MEDS ORDERED: ACETAMINOPHEN 1000 MG/100 ML VIAL (NON FORMULARY) IVPB ONE (10:30)
[2019-08-30] MEDS: LOSARTAN POTASSIUM 50 MG TABLET (FP) PO SCH (10:36)
--- NOTE | 2019-08-30 14:36 | PN.GI ---
GI Progress Note Subjective: GI NOte ( covering Dr Andrew): Maurisio had recurrence of extreme nausea, epigastric pain and headache this morning. He is experienced early satiety with lunch. I discussed given reglan q6h but found that it may prolong his QT interval, erythromycin may do the same. I will therefore try Buspar which can allow for better gastric accomodation. - Objective Vital Signs: Vital Signs Temperature 98.0 F 08/30/19 14:19 Pulse Rate 47 L 08/30/19 14:19 Respiratory Rate 16 08/30/19 14:19 Blood Pressure 148/75 08/30/19 14:19 O2 Sat by Pulse Oximetry (%) 98 08/30/19 08:44 Laboratory Tests 08/28/19 08/29/19 08/30/19 07:40 06:20 07:05 C-Reactive Protein 1.0 H Lipase 927 H IgG4 87 Constitutional: Calm ...Auscultate: Yes: Hypoactive Bowel Sounds ...Palpate: Yes: Soft, Other (nontener) ...Percussion: Yes: Tympanitic Labs: CBC, BMP 08/30/19 07:05 08/30/19 07:05 INR, PTT INR 1.54 (0.83-1.09) H 08/30/19 07:05 Assessment/Plan Assessment: - Gastroparesis leading to acid reflux - Diverticular disease - I doubt pancreatitis Plan: -- Buspar 10mg before meals -- Will stop reglan Problem List - Problems (1) Gastroparesis Code(s): K31.84 - GASTROPARESIS (2) Abdominal pain Code(s): R10.9 - UNSPECIFIED ABDOMINAL PAIN (3) Type 2 diabetes mellitus Code(s): E11.9 - TYPE 2 DIABETES MELLITUS WITHOUT COMPLICATIONS Qualifiers: Diabetes mellitus termite renewal inspector insulin use: without mcc use (4) Coronary arteriosclerosis Code(s): I25.10 - ATHSCL HEART DISEASE OF [place] CORONARY ARTERY W/O ANG PCTRS (5) GERD (gastroesophageal reflux disease) Code(s): K21.9 - GASTRO-ESOPHAGEAL REFLUX DISEASE WITHOUT ESOPHAGITIS (6) Bradycardia Code(s): R00.1 - BRADYCARDIA, UNSPECIFIED (7) Diastolic CHF Code(s): I50.30 - UNSPECIFIED DIASTOLIC (CONGESTIVE) HEART FAILURE (8) Paroxysmal A-fib Code(s): I48.0 - PAROXYSMAL ATRIAL FIBRILLATION
[2019-08-30] MEDS ORDERED: MAG HYDROX/AL HYDROX/SIMETH 30 ML UNIT-DOSE CUP PO PRN (14:45)
--- NOTE | 2019-08-30 15:50 | PN ---
Progress Note (short form) - Note Progress Note: Abdominal pain is better having nausea today along with headaches-- received Tylenol for headache and feels better received reglan as well Vital Signs - 24 hr 08/29/19 08/29/19 08/29/19 18:00 21:00 22:00 Temperature 98.2 F 98.1 F Pulse Rate 60 60 Respiratory 18 16 Rate Blood Pressure 169/92 160/77 O2 Sat by Pulse 98 Oximetry (%) 08/30/19 08/30/19 08/30/19 05:41 08:44 10:00 Temperature 97.9 F 98 F Pulse Rate 57 L 52 L Respiratory 16 16 16 Rate Blood Pressure 182/80 H 179/84 H O2 Sat by Pulse 98 Oximetry (%) 08/30/19 14:19 Temperature 98.0 F Pulse Rate 47 L Respiratory 16 Rate Blood Pressure 148/75 O2 Sat by Pulse Oximetry (%) Current Medications Generic Name Dose Route Start Last Admin Trade Name Freq PRN Reason Stop Dose Admin Acetaminophen 650 mg 08/30/19 10:16 Tylenol - PO Q6H PRN HEADACHE Al Hydroxide/Mg Hydroxide 30 ml 08/30/19 14:45 Mylanta Oral Suspension - PO Q6H PRN DYSPEPSIA Apixaban 5 mg 08/28/19 11:45 08/30/19 09:40 Eliquis - PO 5 mg BID TONJA Administration Atorvastatin Calcium 10 mg 08/28/19 22:00 08/29/19 21:22 Lipitor - PO 10 mg HS TONJA Administration Buspirone HCl 10 mg 08/30/19 17:30 Buspar - PO TIDCM TONJA Dronedarone 400 mg 08/28/19 17:30 08/30/19 09:41 Multaq - PO 400 mg BIDWM TONJA Administration Hydrochlorothiazide 12.5 mg 08/30/19 10:00 08/30/19 10:28 Hctz - PO 12.5 mg DAILY TONJA Administration Insulin Aspart 1 vial 08/30/19 00:38 08/30/19 12:16 Novolog Vial Sliding Scale - SQ Not Given ACHS [facility] Protocol Insulin Detemir 7 units 08/30/19 00:37 08/30/19 07:15 Levemir Vial SQ 7 units BID@0700,2200 [facility] Administration Losartan Potassium 100 mg 08/30/19 10:00 08/30/19 10:36 Cozaar - PO 100 mg DAILY TONJA Administration Morphine Sulfate 2 mg 08/27/19 16:52 08/29/19 17:47 Morphine Sulfate IVPUSH 2 mg Q6H PRN Administration PAIN LEVEL 6-10 Nebivolol 5 mg 08/28/19 11:45 08/30/19 09:40 Bystolic - PO 5 mg BID TONJA Administration Pantoprazole Sodium 20 mg 08/30/19 22:00 Protonix - PO BID [facility] Laboratory Results - last 24 hr 08/28/19 08/29/19 08/29/19 07:40 17:29 21:20 WBC RBC Hgb Hct MCV MCH MCHC RDW Plt Count MPV Absolute Neuts (auto) Neutrophils % Lymphocytes % Monocytes % Eosinophils % Basophils % Nucleated RBC % PT with INR INR Sodium Potassium Chloride Carbon Dioxide Anion Gap BUN Creatinine Est GFR (CKD-EPI)AfAm Est GFR (CKD-EPI)NonAf POC Glucometer 174 165 Random Glucose Calcium Total Bilirubin AST ALT Alkaline Phosphatase Total Protein Albumin Lipase IgG4 87 08/30/19 08/30/19 08/30/19 07:05 07:05 07:05 WBC 7.6 RBC 4.32 Hgb 13.2 Hct 38.4 MCV 88.9 MCH 30.6 MCHC 34.4 RDW 12.6 Plt Count 202 MPV 8.7 Absolute Neuts (auto) 4.1 Neutrophils % 53.4 Lymphocytes % 38.4 Monocytes % 6.2 Eosinophils % 1.4 Basophils % 0.6 Nucleated RBC % 0 PT with INR 18.20 H INR 1.54 H Sodium 141 Potassium 3.6 Chloride 107 Carbon Dioxide 24 Anion Gap 10 BUN 6.8 L Creatinine 0.8 Est GFR (CKD-EPI)AfAm 106.38 Est GFR (CKD-EPI)NonAf 91.79 POC Glucometer Random Glucose 165 H Calcium 8.4 L Total Bilirubin 0.7 AST 18 ALT 23 Alkaline Phosphatase 85 Total Protein 6.1 L Albumin 2.9 L Lipase 927 H IgG4 08/30/19 08/30/19 07:11 12:04 WBC RBC Hgb Hct MCV MCH MCHC RDW Plt Count MPV Absolute Neuts (auto) Neutrophils % Lymphocytes % Monocytes % Eosinophils % Basophils % Nucleated RBC % PT with INR INR Sodium Potassium Chloride Carbon Dioxide Anion Gap BUN Creatinine Est GFR (CKD-EPI)AfAm Est GFR (CKD-EPI)NonAf POC Glucometer 171 134 Random Glucose Calcium Total Bilirubin AST ALT Alkaline Phosphatase Total Protein Albumin Lipase IgG4 S1 S2 Irregular Lungs clear Abd-soft,tender epigastrium, BS+ No edema PLAN advance diet per GI Buspar with meals will order MRCP pain control no surgical intervention per surgeon restart [facility] varinder noted - uncontrolled DM Problem List - Problems (1) Abdominal pain Code(s): R10.9 - UNSPECIFIED ABDOMINAL PAIN (2) Combined hyperlipidemia associated with type 2 diabetes mellitus Code(s): E11.69 - TYPE 2 DIABETES MELLITUS WITH OTHER SPECIFIED COMPLICATION; E78.2 - MIXED HYPERLIPIDEMIA (3) Coronary artery calcification Code(s): I25.10 - ATHSCL HEART DISEASE OF [place] CORONARY ARTERY W/O ANG PCTRS; I25.84 - CORONARY ATHEROSCLEROSIS DUE TO CALCIFIED CORONARY LESION (4) Diabetes Code(s): E11.9 - TYPE 2 DIABETES MELLITUS WITHOUT COMPLICATIONS (5) HTN (hypertension) Code(s): I10 - ESSENTIAL (PRIMARY) HYPERTENSION Qualifiers: Hypertension type: essential hypertension Qualified Code(s): I10 - Essential (primary) hypertension (6) Pancreatitis Code(s): K85.90 - ACUTE PANCREATITIS WITHOUT NECROSIS OR INFECTION, UNSP Qualifiers: Chronicity: acute (7) Paroxysmal A-fib Code(s): I48.0 - PAROXYSMAL ATRIAL FIBRILLATION
[2019-08-30] MEDS: busPIRone HCL 10 MG TABLET (FP) PO SCH (17:30)
[2019-08-30] MEDS ORDERED: amLODIPine BESYLATE 5 MG TABLET (FP) PO ONE (19:55)
[2019-08-30] MEDS: ACETAMINOPHEN 325 MG TABLET (FP) PO PRN (20:05)
[2019-08-30] MEDS: PANTOPRAZOLE 20 MG TABLET (FP) PO SCH (21:42)
[2019-08-30] MEDS: ATORVASTATIN CA 10 MG TABLET (FP) PO SCH (21:42)
--- NOTE | 2019-08-31 00:40 | PN ---
Progress Note, Physician Chief Complaint: has abdominal epigastric pain and headache - Current Medication List Current Medications: Active Medications Acetaminophen (Tylenol -) 650 mg PO Q6H PRN PRN Reason: HEADACHE Last Admin: 08/30/19 20:05 Dose: 650 mg Al Hydroxide/Mg Hydroxide (Mylanta Oral Suspension -) 30 ml PO Q6H PRN PRN Reason: DYSPEPSIA Last Admin: 08/30/19 20:12 Dose: 30 ml Apixaban (Eliquis -) 5 mg PO BID [facility] Last Admin: 08/30/19 21:42 Dose: 5 mg Atorvastatin Calcium (Lipitor -) 10 mg PO HS [facility] Last Admin: 08/30/19 21:42 Dose: 10 mg Buspirone HCl (Buspar -) 10 mg PO TIDCM [facility] Last Admin: 08/30/19 17:30 Dose: 10 mg Dronedarone (Multaq -) 400 mg PO BIDWM [facility] Last Admin: 08/30/19 18:17 Dose: 400 mg Hydrochlorothiazide (Hctz -) 12.5 mg PO DAILY [facility] Last Admin: 08/30/19 10:28 Dose: 12.5 mg Insulin Aspart (Novolog Vial Sliding Scale -) 1 vial SQ ACHS [facility]; Protocol Last Admin: 08/30/19 21:46 Dose: 3 unit Insulin Detemir (Levemir Vial) 7 units SQ BID@0700,2200 [facility] Last Admin: 08/30/19 21:46 Dose: 7 units Losartan Potassium (Cozaar -) 100 mg PO DAILY [facility] Last Admin: 08/30/19 10:36 Dose: 100 mg Nebivolol (Bystolic -) 5 mg PO BID [facility] Last Admin: 08/30/19 21:42 Dose: 5 mg Pancrelipase (Creon Dr 36,000 Units Capsule) 1 cap PO TIDAC [facility] Pantoprazole Sodium (Protonix -) 20 mg PO BID [facility] Last Admin: 08/30/19 21:42 Dose: 20 mg - Objective Vital Signs: Vital Signs Temperature 98.2 F 08/30/19 22:00 Pulse Rate 60 08/30/19 22:00 Respiratory Rate 16 08/30/19 22:00 Blood Pressure 166/76 08/30/19 22:00 O2 Sat by Pulse Oximetry (%) 97 08/30/19 21:00 Constitutional: Yes: Anxious Eyes: Yes: EOM Intact HENT: Yes: Normocephalic Cardiovascular: Yes: Regular Rate and Rhythm Respiratory: Yes: CTA Bilaterally Gastrointestinal: Yes: Tenderness, Epigastrium Genitourinary: Yes: WNL Musculoskeletal: Yes: WNL Edema: No Neurological: Yes: Alert, Oriented Labs: CBC, BMP 08/30/19 07:05 08/30/19 07:05 INR, PTT INR 1.54 (0.83-1.09) H 08/30/19 07:05 Problem List - Problems (1) Abdominal pain Problems reviewed: Yes Code(s): R10.9 - UNSPECIFIED ABDOMINAL PAIN (2) Bladder cancer Problems reviewed: Yes Code(s): C67.9 - MALIGNANT NEOPLASM OF BLADDER, UNSPECIFIED (3) Combined hyperlipidemia associated with type 2 diabetes mellitus Problems reviewed: Yes Code(s): E11.69 - TYPE 2 DIABETES MELLITUS WITH OTHER SPECIFIED COMPLICATION; E78.2 - MIXED HYPERLIPIDEMIA (4) Coronary artery calcification Problems reviewed: Yes Code(s): I25.10 - ATHSCL HEART DISEASE OF [place] CORONARY ARTERY W/O ANG PCTRS; I25.84 - CORONARY ATHEROSCLEROSIS DUE TO CALCIFIED CORONARY LESION (5) Diabetes Code(s): E11.9 - TYPE 2 DIABETES MELLITUS WITHOUT COMPLICATIONS (6) Diastolic dysfunction Code(s): I51.89 - OTHER ILL-DEFINED HEART DISEASES (7) HTN (hypertension) Code(s): I10 - ESSENTIAL (PRIMARY) HYPERTENSION Qualifiers: Hypertension type: essential hypertension Qualified Code(s): I10 - Essential (primary) hypertension (8) Nausea Code(s): R11.0 - NAUSEA Assessment/Plan Current Active Problems Abdominal pain (Acute) Bladder cancer (Acute) Bradycardia (Acute) Combined hyperlipidemia associated with type 2 diabetes mellitus (Acute) Coronary arteriosclerosis (Acute) Coronary artery calcification (Acute) Diabetes (Acute) Diastolic CHF (Acute) Diastolic dysfunction (Acute) GERD (gastroesophageal reflux disease) (Acute) Gastroparesis (Acute) HTN (hypertension) (Acute) Nausea (Acute) Overweight (Acute) Pancreatitis (Acute) Paroxysmal A-fib (Acute) Type 2 diabetes mellitus (Acute) Abnormal Lab Results 08/30/19 08/30/19 07:05 07:05 PT with INR 18.20 H INR 1.54 H BUN 6.8 L Random Glucose 165 H Calcium 8.4 L Total Protein 6.1 L Albumin 2.9 L Lipase 927 H Laboratory Results - last 24 hr 08/28/19 08/30/19 08/30/19 07:40 07:05 07:05 WBC 7.6 RBC 4.32 Hgb 13.2 Hct 38.4 MCV 88.9 MCH 30.6 MCHC 34.4 RDW 12.6 Plt Count 202 MPV 8.7 Absolute Neuts (auto) 4.1 Neutrophils % 53.4 Lymphocytes % 38.4 Monocytes % 6.2 Eosinophils % 1.4 Basophils % 0.6 Nucleated RBC % 0 PT with INR INR Sodium 141 Potassium 3.6 Chloride 107 Carbon Dioxide 24 Anion Gap 10 BUN 6.8 L Creatinine 0.8 Est GFR (CKD-EPI)AfAm 106.38 Est GFR (CKD-EPI)NonAf 91.79 POC Glucometer Random Glucose 165 H Calcium 8.4 L Total Bilirubin 0.7 AST 18 ALT 23 Alkaline Phosphatase 85 Total Protein 6.1 L Albumin 2.9 L Lipase 927 H IgG4 87 08/30/19 08/30/19 08/30/19 07:05 07:11 12:04 WBC RBC Hgb Hct MCV MCH MCHC RDW Plt Count MPV Absolute Neuts (auto) Neutrophils % Lymphocytes % Monocytes % Eosinophils % Basophils % Nucleated RBC % PT with INR 18.20 H INR 1.54 H Sodium Potassium Chloride Carbon Dioxide Anion Gap BUN Creatinine Est GFR (CKD-EPI)AfAm Est GFR (CKD-EPI)NonAf POC Glucometer 171 134 Random Glucose Calcium Total Bilirubin AST ALT Alkaline Phosphatase Total Protein Albumin Lipase IgG4 08/30/19 08/30/19 17:09 21:43 WBC RBC Hgb Hct MCV MCH MCHC RDW Plt Count MPV Absolute Neuts (auto) Neutrophils % Lymphocytes % Monocytes % Eosinophils % Basophils % Nucleated RBC % PT with INR INR Sodium Potassium Chloride Carbon Dioxide Anion Gap BUN Creatinine Est GFR (CKD-EPI)AfAm Est GFR (CKD-EPI)NonAf POC Glucometer 141 171 Random Glucose Calcium Total Bilirubin AST ALT Alkaline Phosphatase Total Protein Albumin Lipase IgG4 plan: check dexamethasone suppression test\ 24 hr urine vma/metanephrines catecholamines levemir 7 units am creon added ac meal
[2019-08-31] MEDS ORDERED: DEXAMETHASONE 0.5 MG TABLET PO ONE (00:45)
[2019-08-31] MEDS: ACETAMINOPHEN 325 MG TABLET (FP) PO PRN (04:20)
[2019-08-31] MEDS: LIPASE/PROTEASE/AMYLASE 36,000 UNIT CAPSULE PO SCH ×3 (06:56→16:40)
[2019-08-31] MEDS: INSULIN (LEVEMIR) 100 UNITS/ML UNITS SQ SCH ×2 (07:02→21:40)
[2019-08-31] MEDS: INSULIN SLIDING SCALE (NOVOLOG) 1 VIAL SQ SCH ×4 (07:07→21:42)
--- NOTE | 2019-08-31 07:43 | PN ---
Progress Note (short form) - Note Progress Note: Chief Complaint: Events noted, notes reviewed, complaining of nausea but improved, complained of headache last night, blood pressure improved, denies any chest pain or dyspnea History of Present Illness: Seen and examined on telemetry. Events noted, notes reviewed, complaining of nausea but improved, complained of headache last night, blood pressure improved , denies any chest pain or dyspnea - Current Medication List Current Medications Acetaminophen (Tylenol -) 650 mg PO Q6H PRN PRN Reason: HEADACHE Last Admin: 08/31/19 04:20 Dose: 650 mg Al Hydroxide/Mg Hydroxide (Mylanta Oral Suspension -) 30 ml PO Q6H PRN PRN Reason: DYSPEPSIA Last Admin: 08/30/19 20:12 Dose: 30 ml Apixaban (Eliquis -) 5 mg PO BID [facility] Last Admin: 08/30/19 21:42 Dose: 5 mg Atorvastatin Calcium (Lipitor -) 10 mg PO HS [facility] Last Admin: 08/30/19 21:42 Dose: 10 mg Buspirone HCl (Buspar -) 10 mg PO TIDCM [facility] Last Admin: 08/30/19 17:30 Dose: 10 mg Dronedarone (Multaq -) 400 mg PO BIDWM [facility] Last Admin: 08/30/19 18:17 Dose: 400 mg Hydrochlorothiazide (Hctz -) 12.5 mg PO DAILY [facility] Last Admin: 08/30/19 10:28 Dose: 12.5 mg Insulin Aspart (Novolog Vial Sliding Scale -) 1 vial SQ [facility]; Protocol Last Admin: 08/31/19 07:07 Dose: Not Given Insulin Detemir (Levemir Vial) 7 units SQ BID@0700,2200 [facility] Last Admin: 08/31/19 07:02 Dose: 7 units Losartan Potassium (Cozaar -) 100 mg PO DAILY [facility] Last Admin: 08/30/19 10:36 Dose: 100 mg Nebivolol (Bystolic -) 5 mg PO BID [facility] Last Admin: 08/30/19 21:42 Dose: 5 mg Pancrelipase (Creon Dr 36,000 Units Capsule) 1 cap PO TIDAC [facility] Last Admin: 08/31/19 06:56 Dose: 1 cap Pantoprazole Sodium (Protonix -) 20 mg PO BID [facility] Last Admin: 08/30/19 21:42 Dose: 20 mg Review of Systems Cardiovascular: As noted above Respiratory: denies: Cough or Sputum Production Gastrointestinal: denies: Vomiting, Diarrhea, Constipation or Abdominal Discomfort but reports Nausea although improved Musculoskeletal: No Symptoms Reported Endocrine: No Symptoms Reported` - Objective Vital Signs: Last Vital Signs Temp Pulse Resp BP Pulse Ox 98.4 F 92 H 20 129/83 97 08/31/19 05:43 08/31/19 05:43 08/31/19 05:43 08/31/19 05:43 08/30/19 21:00 Intake & Output 08/28/19 08/29/19 08/30/19 08/31/19 23:59 23:59 23:59 23:59 Intake Total 2640 2280 460 Balance 2640 2280 460 Weight 234 lb Neck: Supple Negative JVD No Bruit Respiratory: Clear to A&P Bilaterally Cardiovascular: S1 S2 Regular Rate and Rhythm Gastrointestinal: Soft Benign Normal Bowel Sounds Ext: No Edema Labs: CBC, BMP 08/30/19 07:05 08/30/19 07:05 Hepatic Panel Total Bilirubin 0.7 mg/dL (0.2-1) 08/30/19 07:05 AST 18 U/L (15-37) 08/30/19 07:05 ALT 23 U/L (13-61) 08/30/19 07:05 Alkaline Phosphatase 85 U/L (45-117) 08/30/19 07:05 Albumin 2.9 g/dl (3.4-5.0) L 08/30/19 07:05 INR, PTT INR 1.54 (0.83-1.09) H 08/30/19 07:05 Assessment/Plan ASSESSMENT: 1. Acute pancreatitis, etiology of which unclear- for planned MRI/MRCP 2. PAF currently in sinus rhythm [id number] score of 3 on Eliquis 3. Coronary artery disease/visual coronary artery calcification with negative MPI study for ischemia 4. Diastolic dysfunction with clinical class 0 NYHA classification LV failure 5. HTN labile blood pressure, improved control 6. NIDDM not well-controlled 7. Hyperlipidemia PLAN: 1. Continue Bystolic with caution, sinus bradycardia 2. Continue Multaq with caution, sinus bradycardia 3 Continue Cozaar 4. Continue Hydrochlorothiazide 5. As outlined in yesterday's note add Norvasc if blood pressure remains not at goal 6. Continue Lipitor 7. Continue Eliquis 8. As outlined may D/C Zio patch monitor for planned MRI/MRCP Jhonny Mendenhall M.D.
[2019-08-31 08:02] LABS: INR 1.49 (0.83-1.09); PROTHROMBIN TIME (PATIENT) 17.6 SEC (9.7-13.0)
[2019-08-31] MEDS ORDERED: PT OWN MED DRAWER 7, Y5N ONE ×3 (08:24→18:39)
[2019-08-31] MEDS: DRONEDARONE HCL 400 MG TAB (FP) PO SCH ×2 (08:36→16:38)
[2019-08-31] MEDS: busPIRone HCL 10 MG TABLET (FP) PO SCH ×3 (08:36→16:38)
[2019-08-31] MEDS: HYDROCHLOROTHIAZIDE 12.5 MG CAPSULE (FP) PO SCH (10:22)
[2019-08-31] MEDS: NEBIVOLOL 5 MG TABLET (FP) PO SCH ×2 (10:23→21:41)
[2019-08-31] MEDS: LOSARTAN POTASSIUM 50 MG TABLET (FP) PO SCH (10:23)
[2019-08-31] MEDS: APIXABAN 2.5 MG TABLET PO SCH ×2 (10:23→21:41)
[2019-08-31] MEDS: PANTOPRAZOLE 20 MG TABLET (FP) PO SCH ×2 (10:23→21:41)
--- NOTE | 2019-08-31 13:57 | PN.GI ---
GI Progress Note Subjective: GI NOte ( covering for Dr Andrew): MRCP reveals no CBD stones, no pancreatic masses and no pancreatitis. Denies pain but has persistent nausea and loss of appetite. - Objective Vital Signs: Vital Signs Temperature 98.7 F 08/31/19 10:00 Pulse Rate 100 H 08/31/19 10:00 Respiratory Rate 17 08/31/19 10:00 Blood Pressure 132/75 08/31/19 10:00 O2 Sat by Pulse Oximetry (%) 100 08/31/19 09:00 Constitutional: Anxious ...Auscultate: Yes: Hypoactive Bowel Sounds ...Palpate: Yes: Soft, Other (nontender) Labs: CBC, BMP 08/30/19 07:05 08/30/19 07:05 INR, PTT INR 1.49 (0.83-1.09) H 08/31/19 06:55 Assessment/Plan Assessment: - Gastroparesis leading to acid reflux and nausea? - Diverticular disease - No pancreatitis on imaging or clinically Plan: -- Buspar 10mg before meals -- trial of Miralax Discussed the case with Dr. Kasandra [place] Problem List - Problems (1) Nausea Code(s): R11.0 - NAUSEA (2) Gastroparesis Code(s): K31.84 - GASTROPARESIS (3) Abdominal pain Code(s): R10.9 - UNSPECIFIED ABDOMINAL PAIN (4) Type 2 diabetes mellitus Code(s): E11.9 - TYPE 2 DIABETES MELLITUS WITHOUT COMPLICATIONS Qualifiers: Diabetes mellitus terminal gauger insulin use: without terminal gauger use (5) Coronary arteriosclerosis Code(s): I25.10 - ATHSCL HEART DISEASE OF [place] CORONARY ARTERY W/O ANG PCTRS (6) GERD (gastroesophageal reflux disease) Code(s): K21.9 - GASTRO-ESOPHAGEAL REFLUX DISEASE WITHOUT ESOPHAGITIS (7) Bradycardia Code(s): R00.1 - BRADYCARDIA, UNSPECIFIED (8) Diastolic CHF Code(s): I50.30 - UNSPECIFIED DIASTOLIC (CONGESTIVE) HEART FAILURE (9) Paroxysmal A-fib Code(s): I48.0 - PAROXYSMAL ATRIAL FIBRILLATION
--- NOTE | 2019-08-31 17:20 | PN ---
Progress Note (short form) - Note Progress Note: Abdominal pain is better still nauseated, felt SOB when taking a shower today Vital Signs - 24 hr 08/30/19 08/30/19 08/30/19 18:00 19:50 21:00 Temperature Pulse Rate 52 L 54 L Respiratory 16 20 Rate Blood Pressure 142/70 189/98 H O2 Sat by Pulse 97 Oximetry (%) 08/30/19 08/31/19 08/31/19 22:00 01:29 05:43 Temperature 98.2 F 97.8 F 98.4 F Pulse Rate 60 46 L 92 H Respiratory 16 20 20 Rate Blood Pressure 166/76 126/68 129/83 O2 Sat by Pulse Oximetry (%) 08/31/19 08/31/19 08/31/19 09:00 10:00 13:57 Temperature 98.7 F 98.1 F Pulse Rate 100 H 55 L Respiratory 17 17 16 Rate Blood Pressure 132/75 118/66 O2 Sat by Pulse 100 Oximetry (%) Current Medications Generic Name Dose Route Start Last Admin Trade Name Freq PRN Reason Stop Dose Admin Acetaminophen 650 mg 08/30/19 10:16 08/31/19 04:20 Tylenol - PO 650 mg Q6H PRN Administration HEADACHE Al Hydroxide/Mg Hydroxide 30 ml 08/30/19 14:45 08/30/19 20:12 Mylanta Oral Suspension - PO 30 ml Q6H PRN Administration DYSPEPSIA Apixaban 5 mg 08/28/19 11:45 08/31/19 10:23 Eliquis - PO 5 mg BID [facility] Administration Atorvastatin Calcium 10 mg 08/28/19 22:00 08/30/19 21:42 Lipitor - PO 10 mg HS [facility] Administration Buspirone HCl 10 mg 08/30/19 17:30 08/31/19 16:38 Buspar - PO 10 mg TIDCM [facility] Administration Dronedarone 400 mg 08/28/19 17:30 08/31/19 16:38 Multaq - PO 400 mg BIDWM [facility] Administration Hydrochlorothiazide 12.5 mg 08/30/19 10:00 08/31/19 10:22 Hctz - PO 12.5 mg DAILY [facility] Administration Insulin Aspart 1 vial 08/30/19 00:38 08/31/19 16:38 Novolog Vial Sliding Scale - SQ 3 unit ACHS [facility] Administration Protocol Insulin Detemir 7 units 08/30/19 00:37 08/31/19 07:02 Levemir Vial SQ 7 units BID@0700,2200 [facility] Administration Losartan Potassium 100 mg 08/30/19 10:00 08/31/19 10:23 Cozaar - PO 100 mg DAILY [facility] Administration Nebivolol 5 mg 08/28/19 11:45 08/31/19 10:23 Bystolic - PO 5 mg BID [facility] Administration Pancrelipase 1 cap 08/31/19 07:00 08/31/19 16:40 Creon 36,000 Units Capsule PO 1 cap TIDAC [facility] Administration Pantoprazole Sodium 20 mg 08/30/19 22:00 08/31/19 10:23 Protonix - PO 20 mg BID [facility] Administration Polyethylene Glycol 17 gm 08/31/19 22:00 Miralax (For Daily Use) - PO BID [facility] Laboratory Results - last 24 hr 08/30/19 08/31/19 08/31/19 21:43 06:55 06:55 PT with INR 17.60 H INR 1.49 H POC Glucometer 171 Lipase 887 H 08/31/19 08/31/19 08/31/19 06:59 11:50 16:37 PT with INR INR POC Glucometer 193 189 186 Lipase S1 S2 Irregular Lungs clear Abd-soft,tender epigastrium, BS+ No edema PLAN MRCP noted-- no pancreatitis, pancreatic lesions On Buspar dc iv fluids CXR- clear pain control Blood sugar control with insulin Problem List - Problems (1) Abdominal pain Code(s): R10.9 - UNSPECIFIED ABDOMINAL PAIN (2) Combined hyperlipidemia associated with type 2 diabetes mellitus Code(s): E11.69 - TYPE 2 DIABETES MELLITUS WITH OTHER SPECIFIED COMPLICATION; E78.2 - MIXED HYPERLIPIDEMIA (3) Coronary artery calcification Code(s): I25.10 - ATHSCL HEART DISEASE OF [place] CORONARY ARTERY W/O ANG PCTRS; I25.84 - CORONARY ATHEROSCLEROSIS DUE TO CALCIFIED CORONARY LESION (4) Diabetes Code(s): E11.9 - TYPE 2 DIABETES MELLITUS WITHOUT COMPLICATIONS (5) HTN (hypertension) Code(s): I10 - ESSENTIAL (PRIMARY) HYPERTENSION Qualifiers: Hypertension type: essential hypertension Qualified Code(s): I10 - Essential (primary) hypertension (6) Pancreatitis Code(s): K85.90 - ACUTE PANCREATITIS WITHOUT NECROSIS OR INFECTION, UNSP Qualifiers: Chronicity: acute (7) Paroxysmal A-fib Code(s): I48.0 - PAROXYSMAL ATRIAL FIBRILLATION
[2019-08-31] MEDS ORDERED: INSULIN SLIDING SCALE (NOVOLOG) 1 VIAL SQ ONE (18:43)
[2019-08-31] MEDS: POLYETHYLENE GLYCOL 3350 119 GM BTL PO SCH (21:41)
[2019-08-31] MEDS: ATORVASTATIN CA 10 MG TABLET (FP) PO SCH (21:41)
[2019-09-01] MEDS ORDERED: PT OWN MED DRAWER 7, Y5N ONE ×4 (05:46→11:42)
[2019-09-01] MEDS: LIPASE/PROTEASE/AMYLASE 36,000 UNIT CAPSULE PO SCH ×2 (06:30→11:52)
[2019-09-01] MEDS: INSULIN (LEVEMIR) 100 UNITS/ML UNITS SQ SCH (06:30)
[2019-09-01] MEDS: INSULIN SLIDING SCALE (NOVOLOG) 1 VIAL SQ SCH ×2 (06:31→11:48)
[2019-09-01] MEDS: busPIRone HCL 10 MG TABLET (FP) PO SCH ×2 (08:07→11:52)
[2019-09-01] MEDS: DRONEDARONE HCL 400 MG TAB (FP) PO SCH (08:07)
[2019-09-01 08:19] LABS: INR 1.6 (0.83-1.09)
[2019-09-01] MEDS: HYDROCHLOROTHIAZIDE 12.5 MG CAPSULE (FP) PO SCH (09:56)
[2019-09-01] MEDS: PANTOPRAZOLE 20 MG TABLET (FP) PO SCH (09:56)
[2019-09-01] MEDS: LOSARTAN POTASSIUM 50 MG TABLET (FP) PO SCH (09:56)
[2019-09-01] MEDS: NEBIVOLOL 5 MG TABLET (FP) PO SCH (09:56)
[2019-09-01] MEDS: APIXABAN 2.5 MG TABLET PO SCH (09:57)
[2019-09-01] MEDS: POLYETHYLENE GLYCOL 3350 119 GM BTL PO SCH (09:57)
--- NOTE | 2019-09-01 10:37 | PN ---
Progress Note, Physician Chief Complaint: Events noted Not in distress History of Present Illness: Patient was seen and examined. Awake and alert. Chart was reviewed Denies chest pain, SOB or palpitations - Current Medication List Current Medications: Active Medications Acetaminophen (Tylenol -) 650 mg PO Q6H PRN PRN Reason: HEADACHE Last Admin: 08/31/19 04:20 Dose: 650 mg Al Hydroxide/Mg Hydroxide (Mylanta Oral Suspension -) 30 ml PO Q6H PRN PRN Reason: DYSPEPSIA Last Admin: 08/30/19 20:12 Dose: 30 ml Apixaban (Eliquis -) 5 mg PO BID [facility] Last Admin: 09/01/19 09:57 Dose: 5 mg Atorvastatin Calcium (Lipitor -) 10 mg PO HS [facility] Last Admin: 08/31/19 21:41 Dose: 10 mg Buspirone HCl (Buspar -) 10 mg PO TIDCM [facility] Last Admin: 09/01/19 08:07 Dose: 10 mg Dronedarone (Multaq -) 400 mg PO BIDWM [facility] Last Admin: 09/01/19 08:07 Dose: 400 mg Hydrochlorothiazide (Hctz -) 12.5 mg PO DAILY [facility] Last Admin: 09/01/19 09:56 Dose: 12.5 mg Insulin Aspart (Novolog Vial Sliding Scale -) 1 vial SQ [facility]; Protocol Last Admin: 09/01/19 06:31 Dose: 3 unit Insulin Detemir (Levemir Vial) 7 units SQ BID@0700,2200 [facility] Last Admin: 09/01/19 06:30 Dose: 7 units Losartan Potassium (Cozaar -) 100 mg PO DAILY [facility] Last Admin: 09/01/19 09:56 Dose: 100 mg Nebivolol (Bystolic -) 5 mg PO BID [facility] Last Admin: 09/01/19 09:56 Dose: Not Given Pancrelipase (Creon Dr 36,000 Units Capsule) 1 cap PO TIDAC [facility] Last Admin: 09/01/19 06:30 Dose: 1 cap Pantoprazole Sodium (Protonix -) 20 mg PO BID [facility] Last Admin: 09/01/19 09:56 Dose: 20 mg Polyethylene Glycol (Miralax (For Daily Use) -) 17 gm PO BID [facility] Last Admin: 09/01/19 09:57 Dose: 17 gm - Objective Vital Signs: Vital Signs Temperature 98.2 F 09/01/19 05:33 Pulse Rate 43 L 09/01/19 05:33 Respiratory Rate 18 09/01/19 05:33 Blood Pressure 131/68 09/01/19 05:33 O2 Sat by Pulse Oximetry (%) 97 08/31/19 19:59 Eyes: Yes: PERRL HENT: Yes: Atraumatic Neck: Yes: Supple Cardiovascular: Yes: Regular Rate and Rhythm, S1, S2 Respiratory: Yes: CTA Bilaterally Gastrointestinal: Yes: Normal Bowel Sounds, Soft. No: Tenderness Edema: No Additional Findings/Remarks: - Review of Systems Constitutional: denies: Chills, Fever Cardiovascular: denies: Chest Pain, Palpitations, Shortness of Breath Respiratory: denies: Cough, Hemoptysis, Orthopnea, PND, SOB, SOB on Exertion Gastrointestinal: denies: Abdominal Pain, Constipation, Diarrhea, Melena, Nausea , Rectal Bleeding, Vomiting Genitourinary: denies: Dysuria, Hematuria Neurological: denies: Headache, Seizure, Syncope Labs: INR, PTT INR 1.60 (0.83-1.09) H 09/01/19 06:35 Problem List - Problems (1) Bradycardia Code(s): R00.1 - BRADYCARDIA, UNSPECIFIED (2) Coronary artery calcification Code(s): I25.10 - ATHSCL HEART DISEASE OF [place] CORONARY ARTERY W/O ANG PCTRS; I25.84 - CORONARY ATHEROSCLEROSIS DUE TO CALCIFIED CORONARY LESION (3) Diabetes Code(s): E11.9 - TYPE 2 DIABETES MELLITUS WITHOUT COMPLICATIONS (4) Diastolic dysfunction Code(s): I51.89 - OTHER ILL-DEFINED HEART DISEASES (5) GERD (gastroesophageal reflux disease) Code(s): K21.9 - GASTRO-ESOPHAGEAL REFLUX DISEASE WITHOUT ESOPHAGITIS (6) HTN (hypertension) Code(s): I10 - ESSENTIAL (PRIMARY) HYPERTENSION Qualifiers: Hypertension type: essential hypertension Qualified Code(s): I10 - Essential (primary) hypertension (7) Pancreatitis Code(s): K85.90 - ACUTE PANCREATITIS WITHOUT NECROSIS OR INFECTION, UNSP Qualifiers: Chronicity: acute (8) Paroxysmal A-fib Code(s): I48.0 - PAROXYSMAL ATRIAL FIBRILLATION (9) Type 2 diabetes mellitus Code(s): E11.9 - TYPE 2 DIABETES MELLITUS WITHOUT COMPLICATIONS Qualifiers: Diabetes mellitus termite treater helper insulin use: without [place] use Assessment/Plan 1. Acute pancreatitis, etiology of which unclear - for planned MRI/MRCP 2. PAF currently in sinus rhythm [id number] score of 3 on Eliquis 3. Coronary artery disease 4. Diastolic dysfunction with clinical class 0 NYHA classification LV failure 5. HTN labile blood pressure, improved 6. NIDDM not well-controlled 7. Hyperlipidemia PLAN: 1. Continue Bystolic with caution 2. Continue Multaq with caution 3 Continue Cozaar 4. Continue Hydrochlorothiazide 5. Continue Lipitor 6. Continue Eliquis Francisco Mitchell MD
--- NOTE | 2019-09-01 11:09 | DS ---
Physical Examination Vital Signs: Vital Signs Temperature 98.2 F 09/01/19 05:33 Pulse Rate 43 L 09/01/19 05:33 Respiratory Rate 18 09/01/19 05:33 Blood Pressure 131/68 09/01/19 05:33 O2 Sat by Pulse Oximetry (%) 97 08/31/19 19:59 Findings/Remarks: feels well wants to go home no complains denies pain denies n/v tolerating food. have BM Constitutional: Yes: No Distress, Calm Eyes: Yes: Conjunctiva Clear Neck: Yes: Supple Cardiovascular: Yes: Regular Rate and Rhythm Respiratory: Yes: CTA Bilaterally Gastrointestinal: Yes: Soft Edema: No Neurological: Yes: Alert Psychiatric: Yes: Alert Labs: CBC, BMP 08/30/19 07:05 08/30/19 07:05 Discharge Summary Problems reviewed: Yes Reason For Visit: PANCREATITIS Current Active Problems Abdominal pain (Acute) Bladder cancer (Acute) Bradycardia (Acute) Combined hyperlipidemia associated with type 2 diabetes mellitus (Acute) Coronary arteriosclerosis (Acute) Coronary artery calcification (Acute) Diabetes (Acute) Diastolic CHF (Acute) Diastolic dysfunction (Acute) GERD (gastroesophageal reflux disease) (Acute) Gastroparesis (Acute) HTN (hypertension) (Acute) Nausea (Acute) Nausea (Acute) Overweight (Acute) Pancreatitis (Acute) Paroxysmal A-fib (Acute) Type 2 diabetes mellitus (Acute) Hospital Course: The patient is a 69 year old male with a past medical history of HTN, HL, afib on eliquis, diverticulitis, Bladder ca -- s/p TURBt, NIDDM-Diet Controlled and GERD-- Admitted for Abd pain Work up showed Pancreatitis and uncontrolled Diabetes. Treated with fluids work up was -ve for Pancreatitis MRCP- OK followed by GI. cardiology Taday stable for d/c Lipase elevated-- will monitor in office pt strongly counselled to be compliant Also started on Levemir Counselled about diabetic teaching hold off Statins Meds reconcilled d/w RN also Condition: Stable - Instructions Diet, Activity, Other Instructions: lOW SALT DIABETIC DIET. f/U IN OFFICE ONE WEEK Referrals: Bishop Castrejon MD [Primary Care Provider] - Disposition: HOME - Home Medications Comprehensive Discharge Medication List: Ambulatory Orders Apixaban [Eliquis] 2.5 mg PO 08/28/19 Dronedarone HCl [Multaq] 400 mg PO BID 08/28/19 Acetaminophen [Tylenol .Regular Strength -] 650 mg PO Q6H PRN tablet 09/01/19 Buspirone HCl [Buspar -] 10 mg PO TIDCM #90 tablet 09/01/19 Insulin (Levemir) [Levemir Vial] 10 units SQ BID@0700,2200 #1 units 09/01/19 Lipase/Protease/Amylase [Claudia Zuñiga 36,000 Units Capsule] 1 cap PO TIDAC #90 capsule. 09/01/19 Losartan Potassium [Cozaar -] 100 mg PO DAILY tablet 09/01/19 Mag Hydrox/Al Hydrox/Simeth [Mylanta Oral Suspension -] 30 ml PO Q6H PRN cup Pantoprazole Sodium [Protonix -] 20 mg PO BID tablet.ec 09/01/19 Polyethylene Glycol 3350 [Miralax 119 gm Btl -] 17 gm PO BID bottle 09/01/19
--- NOTE | 2019-09-01 11:34 | PN.GI ---
GI Progress Note Subjective: Pt seen/examined at bedside, feeling much better this am, nausea resolved. Tolerated dinner yesterday and breakfast this am, had cereal and coffee. Denies abdominal pain. Possible dc planning today. - Objective Vital Signs: Vital Signs Temperature 98.2 F 09/01/19 05:33 Pulse Rate 43 L 09/01/19 05:33 Respiratory Rate 18 09/01/19 05:33 Blood Pressure 131/68 09/01/19 05:33 O2 Sat by Pulse Oximetry (%) 97 08/31/19 19:59 Constitutional: Well Nourished, No Distress, Calm Cardiovascular: Yes: WNL, Regular Rate and Rhythm Respiratory: Yes: WNL, CTA Bilaterally ...Palpate: Yes: Other (Abd soft, nt, nd) Labs: CBC, BMP 08/30/19 07:05 08/30/19 07:05 INR, PTT INR 1.60 (0.83-1.09) H 09/01/19 06:35 Problem List - Problems (1) Abdominal pain Assessment/Plan: 69yo male h/o DM presenting with abdominal pain with elevated lipase ?mild pancreatitis. UGIS unremarkable. MRCP revealing fatty liver, otherwise no obvious stones, biliary dilation or pancreatic abnormalities. Started on buspirone over the weekend. Abdominal pain and nausea resolved. -Continues conservative measures -No urgency for additional testing at this time in setting of symptomatic improvement -Continue to optimize glycemic control -Diet as tolerated -Continue buspirone 10mg tid -Protonix 40mg daily -Pending dispo, recommend close outpatient GI follow up with Dr. Araujo within 1-2 weeks Code(s): R10.9 - UNSPECIFIED ABDOMINAL PAIN
[2019-09-01 14:14] VITALS: BP 120/60; PULSE 50; TEMP 98.7
== END 2019-09-01 14:29 | disposition home or self-care (01) | DRG 74 ==
LOC: JER 12:17 → JERBED 14:57 → J4S 16:47
PROVIDERS: ADMIT Internal Medicine; ATTEND Internal Medicine
DX: E11.43 Type 2 diabetes mellitus with diabetic autonomic (poly)neuropathy (principal); I48.92 Unspecified atrial flutter; I50.32 Chronic diastolic (congestive) heart failure; I11.0 Hypertensive heart disease with heart failure; K31.84 Gastroparesis; K21.9 Gastro-esophageal reflux disease without esophagitis; I48.0 Paroxysmal atrial fibrillation; E11.65 Type 2 diabetes mellitus with hyperglycemia; K76.0 Fatty (change of) liver, not elsewhere classified; Z85.51 Personal history of malignant neoplasm of bladder; I25.10 Atherosclerotic heart disease of native coronary artery without angina pectoris; Z79.01 Long term (current) use of anticoagulants; E66.3 Overweight; E78.5 Hyperlipidemia, unspecified; Z87.891 Personal history of nicotine dependence; Z68.33 Body mass index [BMI] 33.0-33.9, adult; R00.1 Bradycardia, unspecified; Z79.4 Long term (current) use of insulin
CPT/HCPCS: 36415; 71045-TC-FY; 71046-TC-FY; 74177-TC; 74182-TC; 74240-TC-FY; 76705-TC; 80053; 80061; 81003; 82150; 82384; 82533; 82570; 82787; 82962; 83036; 83690; 83721; 83735; 83880; 84443; 84478; 84484; 84585; 85025; 85610; 85730; 86140; 86850; 86900; 86901; 87086; 93005; 93010; 99284-25; J0131; J7030; J8540

== ENCOUNTER 2020-10-21 14:36 | Emergency (ER) | payer BC ==
[2020-10-21 14:56] VITALS: BP 134/90; PULSE 84; TEMP 99.4; BMI 33.7
[2020-10-21 15:29] LABS: BASO % 4.3 % (0-2.0); EOS % 2.3 % (0-4.5); HEMATOCRIT 44.4 % (35.4-49); HEMOGLOBIN 15.3 GM/dl (11.7-16.9); LYMPH % 45.8 % (8-40); MCHC 34.5 g/dl (32.0-35.9); MEAN CELL VOLUME 89.8 fl (80-96); MEAN PLT VOLUME 8.4 fl (7.5-11.1); MONO % 6.7 % (3.8-10.2); NEUT % 40.9 % (42.8-82.8); PLATELET COUNT 225 K/MM3 (134-434); RBC 4.94 M/mm3 (4.00-5.60); RDW 12.6 % (11.9-15.9); WHITE BLOOD COUNT 10.9 K/mm3 (4.0-10.8)
[2020-10-21 15:39] LABS: ALBUMIN 3.8 g/dl (3.4-5.0); BILIRUBIN,TOTAL 0.7 mg/dl (0.2-1); CALCIUM 9.2 mg/dl (8.5-10); CREATININE 0.9 mg/dl (0.55-1.3); POTASSIUM 3.8 mmol/L (3.5-5.1); TOT PROT 7.2 g/dl (6.4-8.2)
== END 2020-10-21 16:36 | disposition home or self-care (01) ==
LOC: FER 14:36
DX: K21.9 Gastro-esophageal reflux disease without esophagitis (principal)
CPT/HCPCS: 36415; 74176-TC; 80053; 83690; 85025; 93005; 99285-25; C9803; U0003

== ENCOUNTER 2021-11-01 08:13 | Inpatient (IN) | payer BC ==
[2021-11-01] MEDS ORDERED: SODIUM CHLORIDE 500 ML IV STA (08:46)
[2021-11-01] MEDS ORDERED: ACETAMINOPHEN 1000 MG/100 ML BAG IVPB ONE (08:46)
[2021-11-01] MEDS ORDERED: ACETAMINOPHEN INJECTION 100 ML IVPB ONE (08:55)
[2021-11-01] MEDS ORDERED: FAMOTIDINE 20 MG/50 ML IVPB 20 MG/50 ML MG IVPB ONE ×2 (09:26→09:51)
[2021-11-01 10:00] LABS: BASO % 0.2 % (0-2.0); HEMATOCRIT 43.4 % (35.4-49); LYMPH % 18.2 % (8-40); MCH 29.1 pg (25.7-33.7); MCHC 32.2 g/dl (32.0-35.9); MEAN CELL VOLUME 90.3 fl (80-96); MEAN PLT VOLUME 9.5 fl (7.5-11.1); MONO % 8.6 % (3.8-10.2); PLATELET COUNT 219 10^3/uL (134-434); RBC 4.81 M/mm3 (4.00-5.60); RDW 13.8 % (11.9-15.9)
[2021-11-01 10:18] LABS: INR 2.27 (0.83-1.09); PROTHROMBIN TIME (PATIENT) 26.3 SEC (9.7-13.0)
[2021-11-01 10:20] LABS: ACTIVATED PTT 42.6 SECONDS (25.2-36.5); CHLORIDE 96 mmol/L (98-107); SODIUM 133 mmol/L (136-145)
[2021-11-01 10:25] LABS: CALCIUM 8.6 mg/dL (8.5-10.1)
[2021-11-01 10:26] LABS: ALBUMIN 2.8 g/dl (3.4-5.0); ANION GAP 13 MMOL/L (8-16); BLOOD UREA NITROGEN 22.9 mg/dL (7-18); CO2 24 mmol/L (21-32); GLUCOSE,RANDOM 237 mg/dL (74-106)
[2021-11-01 10:27] LABS: LACTIC ACID 3.4 mmol/L (0.4-2.0)
[2021-11-01 10:29] LABS: CREATININE 1.6 mg/dL (0.55-1.3); SGOT/AST 17 U/L (15-37); SGPT/ALT 25 U/L (13-61)
[2021-11-01 10:31] LABS: LDH 206 U/L (87-246); TOT PROT 6.7 g/dl (6.4-8.2)
[2021-11-01 10:32] LABS: ALK PHOS 103 U/L (45-117)
[2021-11-01] MEDS ORDERED: SODIUM CHLORIDE 1,000 ML IV STA ×3 (10:34→17:34)
[2021-11-01 10:37] LABS: BILIRUBIN,TOTAL 1.4 mg/dL (0.2-1)
[2021-11-01] MEDS ORDERED: CEFTRIAXONE 1,000 MG in DEXTROSE 5%-WATER - 50 ML IVPB ONE (11:55)
[2021-11-01] MEDS ORDERED: CEFTRIAXONE 1 GM/50 ML BAG ONE (12:54)
[2021-11-01 13:29] LABS: LACTIC ACID 2.3 mmol/L (0.4-2.0)
[2021-11-01 13:44] LABS: EPI CELLS 7 /uL (0-25.1); HYALINE CASTS 17 /uL (0-3.1); URINE APPEARANCE CLOUDY; URINE BACTERIA >9,000 /uL (0-1359); URINE BILIRUBIN 1+ (NEGATIVE); URINE COLOR DK YELLOW; URINE GLUCOSE (UA) NEGATIVE (NEGATIVE); URINE KETONE TRACE (NEGATIVE); URINE LEUK ESTERASE TRACE (NEGATIVE); URINE NITRITE POSITIVE (NEGATIVE); URINE PROTEIN 2+ (NEGATIVE); URINE RBC 66 /uL (0-23.9); URINE WBC 197 /uL (0-25.8)
[2021-11-01] MEDS ORDERED: ONDANSETRON 4 MG/2 ML VIAL IVPUSH PRN (13:51)
[2021-11-01] MEDS ORDERED: ACETAMINOPHEN 325 MG TABLET (FP) PO PRN (13:51)
[2021-11-01] MEDS ORDERED: diphenhydrAMINE HCL 25 MG CAPSULE (FP) PO PRN (13:52)
[2021-11-01] MEDS: PANTOPRAZOLE SODIUM 40 MG VIAL IVPUSH SCH (13:58)
[2021-11-01] MEDS: SODIUM CHLORIDE 1,000 ML IV SCH ×2 (14:25→22:31)
[2021-11-01] MEDS ORDERED: CEFTRIAXONE 1 GM in DEXTROSE 5%-WATER - 50 ML IVPB ONE (14:33)
[2021-11-01] MEDS ORDERED: DEXTROSE 5%-WATER - 50 ML IVPB ONE ×3 (14:48→23:27)
[2021-11-01] MEDS ORDERED: cefTRIAXone SODIUM 1 GM VIAL ONE (14:48)
[2021-11-01] MEDS: NEBIVOLOL 5 MG TABLET (FP) PO SCH (15:15)
[2021-11-01] MEDS ORDERED: FUROSEMIDE 40 MG/4 ML INJECTABLE VIAL IVPUSH ONE (16:53)
[2021-11-01] MEDS ORDERED: METOPROLOL TARTRATE 5 MG/5 ML VIAL IVPUSH ONE ×2 (16:54→17:07)
[2021-11-01] MEDS: HYDROCORTISONE 0.5% TOPICAL CREAM 30 GM TUBE TP SCH (17:00)
[2021-11-01] MEDS ORDERED: METOPROLOL TARTRATE 5 MG/5 ML VIAL ONE (17:17)
[2021-11-01] MEDS ORDERED: DIGOXIN 0.25 MG TABLET PO ONE (17:18)
[2021-11-01] MEDS ORDERED: VANCOMYCIN 1 GM in D5W (PRE-DOCKED) 1,000 MG/250 ML IVPB ONE (17:30)
[2021-11-01] MEDS ORDERED: VANCOMYCIN 1 GM in D5W (PRE-DOCKED) 1,000 MG/250 ML IVPB SCH (17:30)
[2021-11-01 17:52] LABS: LIPASE 55 U/L (73-393)
[2021-11-01 17:53] LABS: AMYLASE 28 U/L (25-115)
[2021-11-01] MEDS ORDERED: PIPERACILLIN/TAZOB 3.375 GM 3.375 GM in DEXTROSE 5%-WATER - 50 ML IVPB SCH (18:00)
[2021-11-01] MEDS ORDERED: PIPERACILLIN/TAZOBACTAM 3.375 GM VIAL IVPB ONE ×2 (18:17→23:27)
[2021-11-01] MEDS: PIPERACILLIN/TAZOB 3.375 GM 3.375 GM in DEXTROSE 5%-WATER - 50 ML IVPB SCH (18:21)
[2021-11-01 18:44] VITALS: BMI 30.5
[2021-11-01] MEDS: INSULIN SLIDING SCALE (NOVOLOG) 1 VIAL SQ SCH (21:45)
[2021-11-01] MEDS: APIXABAN 5 MG TABLET PO SCH (21:45)
[2021-11-01] MEDS ORDERED: DIGOXIN 0.125 MG TABLET PO ONE (23:19)
[2021-11-02] MEDS: PIPERACILLIN/TAZOB 3.375 GM 3.375 GM in DEXTROSE 5%-WATER - 50 ML IVPB SCH ×4 (00:13→17:30)
[2021-11-02] MEDS ORDERED: METOPROLOL TARTRATE 5 MG/5 ML VIAL ONE (00:22)
[2021-11-02] MEDS ORDERED: METOPROLOL TARTRATE 5 MG/5 ML VIAL IVPUSH ONE (00:46)
[2021-11-02] MEDS ORDERED: DIGOXIN 0.125 MG TABLET PO ONE (05:00)
[2021-11-02] MEDS ORDERED: DEXTROSE 5%-WATER - 50 ML IVPB ONE ×3 (05:43→17:08)
[2021-11-02] MEDS ORDERED: PIPERACILLIN/TAZOBACTAM 3.375 GM VIAL IVPB ONE ×3 (05:43→17:08)
[2021-11-02] MEDS: INSULIN SLIDING SCALE (NOVOLOG) 1 VIAL SQ SCH ×4 (06:03→21:02)
[2021-11-02 08:17] LABS: BASO % 0.2 % (0-2.0); HEMATOCRIT 35.1 % (35.4-49); HEMOGLOBIN 11.4 GM/dL (11.7-16.9); LYMPH % 21.9 % (8-40); MCHC 32.4 g/dl (32.0-35.9); MEAN CELL VOLUME 89.4 fl (80-96); MEAN PLT VOLUME 8.8 fl (7.5-11.1); NEUT % 70.9 % (42.8-82.8); PLATELET COUNT 235 10^3/uL (134-434); RBC 3.93 M/mm3 (4.00-5.60); RDW 13.9 % (11.9-15.9)
[2021-11-02 08:29] LABS: CHLORIDE 104 mmol/L (98-107); SODIUM 136 mmol/L (136-145)
[2021-11-02 08:32] LABS: CALCIUM 7.4 mg/dL (8.5-10.1)
[2021-11-02 08:33] LABS: ANION GAP 8 MMOL/L (8-16); BLOOD UREA NITROGEN 24.6 mg/dL (7-18); CO2 24 mmol/L (21-32); GLUCOSE,RANDOM 159 mg/dL (74-106)
[2021-11-02 08:35] LABS: SGPT/ALT 20 U/L (13-61)
[2021-11-02 08:36] LABS: CREATININE 1.2 mg/dL (0.55-1.3); SGOT/AST 19 U/L (15-37)
[2021-11-02 08:38] LABS: TOT PROT 5.4 g/dl (6.4-8.2)
[2021-11-02 08:47] LABS: ALBUMIN 2.2 g/dl (3.4-5.0); ALK PHOS 71 U/L (45-117)
[2021-11-02] MEDS ORDERED: FUROSEMIDE 20 MG TABLET (FP) PO SCH (10:00)
[2021-11-02] MEDS ORDERED: CEFTRIAXONE 2 GM in DEXTROSE 5%-WATER 100 ML IVPB SCH (10:00)
[2021-11-02] MEDS: APIXABAN 5 MG TABLET PO SCH ×2 (10:17→21:02)
[2021-11-02] MEDS: PANTOPRAZOLE SODIUM 40 MG VIAL IVPUSH SCH (10:17)
[2021-11-02] MEDS: HYDROCORTISONE 0.5% TOPICAL CREAM 30 GM TUBE TP SCH (10:18)
[2021-11-02] MEDS: NEBIVOLOL 5 MG TABLET (FP) PO SCH (10:18)
[2021-11-02] MEDS: SODIUM CHLORIDE 1,000 ML IV SCH (14:32)
[2021-11-03] MEDS ORDERED: PIPERACILLIN/TAZOBACTAM 3.375 GM VIAL IVPB ONE ×5 (00:45→23:45)
[2021-11-03] MEDS ORDERED: DEXTROSE 5%-WATER - 50 ML IVPB ONE ×5 (00:45→23:45)
[2021-11-03] MEDS: PIPERACILLIN/TAZOB 3.375 GM 3.375 GM in DEXTROSE 5%-WATER - 50 ML IVPB SCH ×4 (00:53→18:19)
[2021-11-03] MEDS: INSULIN SLIDING SCALE (NOVOLOG) 1 VIAL SQ SCH ×4 (06:07→21:40)
[2021-11-03 07:50] LABS: BASO % 0.3 % (0-2.0); EOS % 0.4 % (0-4.5); HEMATOCRIT 36.6 % (35.4-49); HEMOGLOBIN 11.8 GM/dL (11.7-16.9); LYMPH % 27.7 % (8-40); MCH 29.4 pg (25.7-33.7); MCHC 32.3 g/dl (32.0-35.9); MEAN CELL VOLUME 90.8 fl (80-96); MEAN PLT VOLUME 9.1 fl (7.5-11.1); MONO % 6.8 % (3.8-10.2); NEUT % 64.8 % (42.8-82.8); PLATELET COUNT 224 10^3/uL (134-434); RBC 4.03 M/mm3 (4.00-5.60); WHITE BLOOD COUNT 9.8 K/mm3 (4.0-10.0)
[2021-11-03 08:13] LABS: ALBUMIN 2.3 g/dl (3.4-5.0); BLOOD UREA NITROGEN 17.8 mg/dL (7-18)
[2021-11-03 08:18] LABS: BILIRUBIN,TOTAL 0.8 mg/dL (0.2-1)
[2021-11-03] MEDS: NEBIVOLOL 5 MG TABLET (FP) PO SCH (10:03)
[2021-11-03] MEDS: APIXABAN 5 MG TABLET PO SCH ×2 (10:03→21:38)
[2021-11-03] MEDS: PANTOPRAZOLE SODIUM 40 MG VIAL IVPUSH SCH (10:04)
[2021-11-03] MEDS: HYDROCORTISONE 0.5% TOPICAL CREAM 30 GM TUBE TP SCH (12:10)
[2021-11-03] MEDS: SODIUM CHLORIDE 1,000 ML IV SCH (13:49)
[2021-11-03] MEDS: INSULIN (LEVEMIR) 100 UNITS/ML UNITS SQ SCH (21:40)
[2021-11-04] MEDS: PIPERACILLIN/TAZOB 3.375 GM 3.375 GM in DEXTROSE 5%-WATER - 50 ML IVPB SCH ×3 (00:16→11:09)
[2021-11-04] MEDS ORDERED: LOPERAMIDE HCL 2 MG CAPSULE PO ONE (01:05)
[2021-11-04] MEDS ORDERED: PIPERACILLIN/TAZOBACTAM 3.375 GM VIAL IVPB ONE ×2 (06:21→11:03)
[2021-11-04] MEDS ORDERED: DEXTROSE 5%-WATER - 50 ML IVPB ONE ×2 (06:22→11:03)
[2021-11-04] MEDS: INSULIN (LEVEMIR) 100 UNITS/ML UNITS SQ SCH ×2 (06:51→21:27)
[2021-11-04] MEDS: INSULIN SLIDING SCALE (NOVOLOG) 1 VIAL SQ SCH ×4 (06:52→21:27)
[2021-11-04] MEDS: SODIUM CHLORIDE 1,000 ML IV SCH (07:48)
[2021-11-04 09:05] LABS: BASO % 0.3 % (0-2.0); EOS % 1.1 % (0-4.5); HEMATOCRIT 33.7 % (35.4-49); HEMOGLOBIN 10.9 GM/dL (11.7-16.9); LYMPH % 26.7 % (8-40); MCH 29.3 pg (25.7-33.7); MCHC 32.2 g/dl (32.0-35.9); MEAN PLT VOLUME 8.8 fl (7.5-11.1); MONO % 7.6 % (3.8-10.2); NEUT % 64.3 % (42.8-82.8); PLATELET COUNT 248 10^3/uL (134-434); RDW 13.8 % (11.9-15.9); WHITE BLOOD COUNT 7.7 K/mm3 (4.0-10.0)
[2021-11-04] MEDS: LACTOBACILLUS ACIDOPHILUS 1 TABLET PO SCH (09:30)
[2021-11-04] MEDS: NEBIVOLOL 5 MG TABLET (FP) PO SCH (09:30)
[2021-11-04] MEDS: APIXABAN 5 MG TABLET PO SCH ×2 (09:30→21:20)
[2021-11-04] MEDS: PANTOPRAZOLE SODIUM 40 MG VIAL IVPUSH SCH (09:30)
[2021-11-04] MEDS: HYDROCORTISONE 0.5% TOPICAL CREAM 30 GM TUBE TP SCH (09:31)
[2021-11-04 10:03] LABS: ALBUMIN 2.3 g/dl (3.4-5.0); BLOOD UREA NITROGEN 14.5 mg/dL (7-18); CALCIUM 8.1 mg/dL (8.5-10.1)
[2021-11-04 10:07] LABS: CREATININE 0.9 mg/dL (0.55-1.3)
[2021-11-04 10:09] LABS: BILIRUBIN,TOTAL 0.8 mg/dL (0.2-1); TOT PROT 5.7 g/dl (6.4-8.2)
[2021-11-04] MEDS ORDERED: DEXTROSE 5%-WATER 100 ML IVPB ONE (16:48)
[2021-11-04] MEDS ORDERED: LOSARTAN POTASSIUM 50 MG TABLET PO ONE (17:18)
[2021-11-04] MEDS ORDERED: CEFTRIAXONE 2 GM in DEXTROSE 5%-WATER 100 ML IVPB ONE (18:00)
[2021-11-05] MEDS: INSULIN SLIDING SCALE (NOVOLOG) 1 VIAL SQ SCH ×4 (06:29→21:20)
[2021-11-05] MEDS: INSULIN (LEVEMIR) 100 UNITS/ML UNITS SQ SCH ×2 (06:29→21:20)
[2021-11-05 07:41] LABS: BASO % 0.3 % (0-2.0); EOS % 1.3 % (0-4.5); HEMATOCRIT 35.1 % (35.4-49); HEMOGLOBIN 11.5 GM/dL (11.7-16.9); LYMPH % 29.9 % (8-40); MCH 29.5 pg (25.7-33.7); MCHC 32.8 g/dl (32.0-35.9); MEAN CELL VOLUME 90.1 fl (80-96); NEUT % 60.5 % (42.8-82.8); PLATELET COUNT 280 10^3/uL (134-434); RBC 3.89 M/mm3 (4.00-5.60); RDW 14.2 % (11.9-15.9); WHITE BLOOD COUNT 8.9 K/mm3 (4.0-10.0)
[2021-11-05 08:01] LABS: CALCIUM 8.5 mg/dL (8.5-10.1)
[2021-11-05 08:02] LABS: ALBUMIN 2.4 g/dl (3.4-5.0); BLOOD UREA NITROGEN 9.4 mg/dL (7-18)
[2021-11-05 08:05] LABS: CREATININE 0.8 mg/dL (0.55-1.3)
[2021-11-05 08:07] LABS: BILIRUBIN,TOTAL 0.8 mg/dL (0.2-1)
[2021-11-05] MEDS ORDERED: DEXTROSE 5%-WATER 100 ML IVPB ONE (09:25)
[2021-11-05] MEDS: PANTOPRAZOLE 40 MG TABLET PO SCH (09:26)
[2021-11-05] MEDS: CEFTRIAXONE 2 GM in DEXTROSE 5%-WATER 100 ML IVPB SCH (09:26)
[2021-11-05] MEDS: APIXABAN 5 MG TABLET PO SCH ×2 (09:26→21:17)
[2021-11-05] MEDS: NEBIVOLOL 5 MG TABLET (FP) PO SCH (09:26)
[2021-11-05] MEDS: LACTOBACILLUS ACIDOPHILUS 1 TABLET PO SCH (09:26)
[2021-11-05] MEDS: HYDROCORTISONE 0.5% TOPICAL CREAM 30 GM TUBE TP SCH (09:33)
[2021-11-05] MEDS ORDERED: LOSARTAN POTASSIUM 50 MG TABLET PO SCH (10:00)
[2021-11-06] MEDS: ACETAMINOPHEN 325 MG TABLET (FP) PO PRN ×3 (06:22→20:16)
[2021-11-06] MEDS: INSULIN SLIDING SCALE (NOVOLOG) 1 VIAL SQ SCH ×4 (06:29→21:12)
[2021-11-06] MEDS: INSULIN (LEVEMIR) 100 UNITS/ML UNITS SQ SCH ×2 (06:29→21:10)
[2021-11-06] MEDS ORDERED: DEXTROSE 5%-WATER 100 ML IVPB ONE (10:09)
[2021-11-06] MEDS: CEFTRIAXONE 2 GM in DEXTROSE 5%-WATER 100 ML IVPB SCH (10:11)
[2021-11-06] MEDS: HYDROCHLOROTHIAZIDE 12.5 MG CAPSULE (FP) PO SCH (10:11)
[2021-11-06] MEDS: NEBIVOLOL 5 MG TABLET (FP) PO SCH (10:11)
[2021-11-06] MEDS: APIXABAN 5 MG TABLET PO SCH ×2 (10:11→21:09)
[2021-11-06] MEDS: LACTOBACILLUS ACIDOPHILUS 1 TABLET PO SCH (10:11)
[2021-11-06] MEDS: PANTOPRAZOLE 40 MG TABLET PO SCH (10:11)
[2021-11-06] MEDS: SACUBITRIL/VALSARTAN 49 MG-51 MG TABLET PO SCH ×2 (10:12→21:09)
[2021-11-06] MEDS: HYDROCORTISONE 0.5% TOPICAL CREAM 30 GM TUBE TP SCH (10:15)
[2021-11-07] MEDS ORDERED: NEBIVOLOL 10 MG TABLET (FP) PO SCH (06:00)
[2021-11-07] MEDS: INSULIN SLIDING SCALE (NOVOLOG) 1 VIAL SQ SCH ×2 (06:16→10:52)
[2021-11-07] MEDS: INSULIN (LEVEMIR) 100 UNITS/ML UNITS SQ SCH (06:16)
[2021-11-07 07:44] LABS: BASO % 0.6 % (0-2.0); HEMATOCRIT 41.9 % (35.4-49); LYMPH % 26.6 % (8-40); MCH 29.9 pg (25.7-33.7); MCHC 33.6 g/dl (32.0-35.9); MEAN CELL VOLUME 89.2 fl (80-96); MEAN PLT VOLUME 8.4 fl (7.5-11.1); MONO % 9.4 % (3.8-10.2); NEUT % 62.4 % (42.8-82.8); PLATELET COUNT 400 10^3/uL (134-434); RBC 4.69 M/mm3 (4.00-5.60); RDW 13.9 % (11.9-15.9); WHITE BLOOD COUNT 9.5 K/mm3 (4.0-10.0)
[2021-11-07 07:58] LABS: CALCIUM 9.2 mg/dL (8.5-10.1)
[2021-11-07 07:59] LABS: ALBUMIN 2.7 g/dl (3.4-5.0); BLOOD UREA NITROGEN 9.6 mg/dL (7-18)
[2021-11-07 08:02] LABS: CREATININE 0.8 mg/dL (0.55-1.3)
[2021-11-07 09:20] VITALS: TEMP 97.5
[2021-11-07] MEDS ORDERED: DEXTROSE 5%-WATER 100 ML IVPB ONE (09:23)
[2021-11-07] MEDS: HYDROCHLOROTHIAZIDE 12.5 MG CAPSULE (FP) PO SCH (09:33)
[2021-11-07] MEDS: PANTOPRAZOLE 40 MG TABLET PO SCH (09:33)
[2021-11-07] MEDS: LACTOBACILLUS ACIDOPHILUS 1 TABLET PO SCH (09:33)
[2021-11-07] MEDS: SACUBITRIL/VALSARTAN 49 MG-51 MG TABLET PO SCH (09:33)
[2021-11-07] MEDS: CEFTRIAXONE 2 GM in DEXTROSE 5%-WATER 100 ML IVPB SCH (09:33)
[2021-11-07] MEDS: APIXABAN 5 MG TABLET PO SCH (09:33)
[2021-11-07] MEDS: HYDROCORTISONE 0.5% TOPICAL CREAM 30 GM TUBE TP SCH (09:34)
[2021-11-07] MEDS: ACETAMINOPHEN 325 MG TABLET (FP) PO PRN (10:52)
[2021-11-07 14:22] VITALS: BP 110/57; PULSE 79
== END 2021-11-07 15:35 | disposition home or self-care (01) | DRG 872 ==
LOC: JER 08:13 → JERBED 11:55 → J4S 13:45
PROVIDERS: ADMIT Internal Medicine; ATTEND Internal Medicine
PROC: 02HV33Z Insertion of Infusion Device into Superior Vena Cava, Percutaneous Approach (ICD-10-PCS; principal; 2021-11-07)
PROC: B548ZZA Ultrasonography of Superior Vena Cava, Guidance (ICD-10-PCS; 2021-11-07)
DX: A41.51 Sepsis due to Escherichia coli [E. coli] (principal); N39.0 Urinary tract infection, site not specified; E87.2 Acidosis; I48.92 Unspecified atrial flutter; I48.19 Other persistent atrial fibrillation; N12 Tubulo-interstitial nephritis, not specified as acute or chronic; I10 Essential (primary) hypertension; Z79.01 Long term (current) use of anticoagulants; E11.9 Type 2 diabetes mellitus without complications; N28.9 Disorder of kidney and ureter, unspecified; R21 Rash and other nonspecific skin eruption; L50.9 Urticaria, unspecified; C67.9 Malignant neoplasm of bladder, unspecified; I25.10 Atherosclerotic heart disease of native coronary artery without angina pectoris; I34.0 Nonrheumatic mitral (valve) insufficiency; I36.1 Nonrheumatic tricuspid (valve) insufficiency; E66.09 Other obesity due to excess calories; Z68.30 Body mass index [BMI] 30.0-30.9, adult; D64.9 Anemia, unspecified
CPT/HCPCS: 36415; 36569; 71045-TC-FY; 74176-TC; 80053; 80061; 81003; 82150; 82550; 82553; 82728; 82962; 83036; 83605; 83615; 83690; 84153; 84439; 84443; 84484; 85025; 85610; 85730; 86140; 86780; 87040; 87086; 87186; 87804; 93005; 93010; 93306-TC; 99285-25; C9803; J0131; U0003; U0005

== ENCOUNTER 2022-03-30 11:28 | Emergency (ER) | payer BC ==
[2022-03-30 11:36] VITALS: TEMP 97.4; BMI 30.1
[2022-03-30 12:34] LABS: BASO % 0.8 % (0-2.0); EOS % 1.8 % (0-4.5); HEMATOCRIT 43.2 % (35.4-49); HEMOGLOBIN 14.4 GM/dL (11.7-16.9); LYMPH % 44.6 % (8-40); MCH 30.5 pg (25.7-33.7); MCHC 33.4 g/dl (32.0-35.9); MEAN CELL VOLUME 91.1 fl (80-96); MEAN PLT VOLUME 8.9 fl (7.5-11.1); MONO % 6.8 % (3.8-10.2); PLATELET COUNT 154 10^3/uL (134-434); RBC 4.74 M/mm3 (4.00-5.60); RDW 13.9 % (11.9-15.9); WHITE BLOOD COUNT 9.5 K/mm3 (4.0-10.0)
[2022-03-30 12:39] LABS: CALCIUM 9.2 mg/dL (8.5-10.1)
[2022-03-30 12:40] LABS: ALBUMIN 3.3 g/dl (3.4-5.0); BLOOD UREA NITROGEN 16.1 mg/dL (7-18)
[2022-03-30 12:42] LABS: CREATININE 0.8 mg/dL (0.55-1.3)
[2022-03-30 12:44] LABS: BILIRUBIN,TOTAL 0.7 mg/dL (0.2-1); TOT PROT 7.1 g/dl (6.4-8.2)
[2022-03-30] MEDS ORDERED: SODIUM CHLORIDE 0.9% 1000 ML INFUS.BAG IV ONE (14:46)
[2022-03-30 14:48] VITALS: BP 150/84; PULSE 71
== END 2022-03-30 16:27 | disposition home or self-care (01) ==
LOC: JER 11:28
DX: R41.82 Altered mental status, unspecified (principal); T41.45XA Adverse effect of unspecified anesthetic, initial encounter
CPT/HCPCS: 36415; 70450-TC; 80053; 82962; 84484; 85025; 93005; 93010; 99285-25

== ENCOUNTER 2022-04-18 12:07 | Emergency (ER) | payer BC ==
[2022-04-18] MEDS ORDERED: BEBTELOVIMAB (EUA) 175 MG/2 ML VIAL IVPUSH ONE (12:10)
[2022-04-18 12:21] VITALS: BP 124/75; TEMP 98.9; BMI 30.1
[2022-04-18 14:34] VITALS: PULSE 82
== END 2022-04-18 14:35 | disposition home or self-care (01) ==
LOC: JER 12:07
PROC: 3E033GC Introduction of Other Therapeutic Substance into Peripheral Vein, Percutaneous Approach (ICD-10-PCS; principal; 2022-04-18)
DX: U07.1 COVID-19 (principal)
CPT/HCPCS: 96374; 99284-25; M0222; Q0222

== ENCOUNTER 2023-05-18 07:35 | Inpatient (IN) | payer BC, OTHER ==
[2023-05-18] MEDS ORDERED: PIPERACILLIN/TAZOB 3.375 GM 3.375 GM in DEXTROSE 5%-WATER - 50 ML IVPB ONE (07:51)
[2023-05-18] MEDS ORDERED: PIPERACILLIN/TAZOB 3.375 GM 3.375 GM/50 ML BAG IVPB ONE (07:59)
[2023-05-18] MEDS ORDERED: SODIUM CHLORIDE 0.9% 500 ML INFUS.BAG IV ONE ×2 (08:03→08:27)
[2023-05-18 08:19] LABS: BASO % 0.2 % (0-2.0); EOS % 0.1 % (0-4.5); HEMOGLOBIN 15.1 GM/dL (11.7-16.9); MCH 29.8 pg (25.7-33.7); MCHC 32.2 g/dl (32.0-35.9); MEAN CELL VOLUME 92.7 fl (80-96); MEAN PLT VOLUME 10.2 fl (7.5-11.1); MONO % 9.5 % (3.8-10.2); NEUT % 72.2 % (42.8-82.8); PLATELET COUNT 267 10^3/uL (134-434); RBC 5.07 M/mm3 (4.00-5.60); RDW 14.1 % (11.9-15.9); WHITE BLOOD COUNT 18.3 K/mm3 (4.0-10.0)
[2023-05-18 08:23] LABS: ACTIVATED PTT 33.6 SECONDS (25.2-36.5)
[2023-05-18 08:28] LABS: INR 1.98 (0.83-1.09); PROTHROMBIN TIME (PATIENT) 22.8 SEC (9.7-13.0)
[2023-05-18 08:31] LABS: CHLORIDE 100 mmol/L (98-107); POTASSIUM 4.4 mmol/L (3.5-5.1); SODIUM 136 mmol/L (136-145)
[2023-05-18 08:33] LABS: CALCIUM 8.8 mg/dL (8.5-10.1)
[2023-05-18 08:34] LABS: ANION GAP 14 MMOL/L (8-16); BLOOD UREA NITROGEN 19.1 mg/dL (7-18); CO2 22 mmol/L (21-32); GLUCOSE,RANDOM 298 mg/dL (74-106); MAGNESIUM 2.2 mg/dL (1.8-2.4)
[2023-05-18 08:37] LABS: CREATININE 1.7 mg/dL (0.55-1.3); SGOT/AST 24 U/L (15-37); SGPT/ALT 21 U/L (13-61); VENOUS BASE EXCESS -4.9 mmol/L (-2-2); VENOUS O2 SATURATION 90.3 % (70-80); VENOUS PCO2 31.8 mmHg (38-52); VENOUS PH 7.388 (7.310-7.410)
[2023-05-18 08:39] LABS: BILIRUBIN,TOTAL 1.4 mg/dL (0.2-1); TOT PROT 7.2 g/dl (6.4-8.2)
[2023-05-18 08:40] LABS: ALK PHOS 98 U/L (45-117)
[2023-05-18 08:50] LABS: LACTIC ACID 4.9 mmol/L (0.4-2.0)
[2023-05-18] MEDS ORDERED: ACETAMINOPHEN 1000 MG/100 ML BAG IVPB ONE (08:50)
[2023-05-18] MEDS ORDERED: ACETAMINOPHEN INJECTION 100 ML IVPB ONE (08:54)
[2023-05-18] MEDS ORDERED: INSULIN (LEVEMIR) 100 UNITS/ML UNITS SQ ONE ×2 (10:56→11:10)
[2023-05-18] MEDS: SODIUM CHLORIDE 1,000 ML IV SCH ×2 (11:08→21:42)
[2023-05-18 11:24] LABS: LACTIC ACID 2.1 mmol/L (0.4-2.0)
[2023-05-18] MEDS: INSULIN SLIDING SCALE (NOVOLOG) 1 VIAL SQ SCH ×3 (11:29→21:43)
[2023-05-18 12:09] LABS: URINE APPEARANCE TURBID; URINE BILIRUBIN NEGATIVE (NEGATIVE); URINE COLOR DK YELLOW; URINE GLUCOSE (UA) 1+ (NEGATIVE); URINE KETONE 15 mg/dl (NEGATIVE)
[2023-05-18 12:10] LABS: PH,URINE 5.5 (5.0-8.0); URINE LEUK ESTERASE NEGATIVE (NEGATIVE); URINE NITRITE NEGATIVE (NEGATIVE); URINE PROTEIN 1+ (NEGATIVE)
[2023-05-18 12:14] LABS: EPI CELLS >36 /uL (0-25.1); HYALINE CASTS 3 /uL (0-3.1); URINE BACTERIA 54 /uL (0-1359); URINE RBC 64 /uL (0-23.9)
[2023-05-18 12:19] LABS: URINE WBC 63.7 /uL (0-25.8)
[2023-05-18 12:41] VITALS: BMI 31.5
[2023-05-18] MEDS: PIPERACILLIN/TAZOB 3.375 GM 3.375 GM in DEXTROSE 5%-WATER - 50 ML IVPB SCH ×2 (15:57→17:12)
[2023-05-18] MEDS: APIXABAN 5 MG TABLET PO SCH (21:43)
[2023-05-19] MEDS: PIPERACILLIN/TAZOB 3.375 GM 3.375 GM in DEXTROSE 5%-WATER - 50 ML IVPB SCH ×3 (01:49→17:40)
[2023-05-19] MEDS: SODIUM CHLORIDE 1,000 ML IV SCH ×2 (05:54→08:55)
[2023-05-19] MEDS: INSULIN SLIDING SCALE (NOVOLOG) 1 VIAL SQ SCH ×4 (06:10→22:40)
[2023-05-19 07:39] LABS: BASO % 0.2 % (0-2.0); EOS % 1.6 % (0-4.5); HEMOGLOBIN 12.2 GM/dL (11.7-16.9); LYMPH % 30.8 % (8-40); MCHC 34.8 g/dl (32.0-35.9); MEAN CELL VOLUME 89.1 fl (80-96); MEAN PLT VOLUME 8.6 fl (7.5-11.1); MONO % 7.2 % (3.8-10.2); NEUT % 60.2 % (42.8-82.8); PLATELET COUNT 206 10^3/uL (134-434); RBC 3.93 M/mm3 (4.00-5.60); RDW 13.8 % (11.9-15.9); WHITE BLOOD COUNT 10.2 K/mm3 (4.0-10.0)
[2023-05-19 07:46] LABS: POTASSIUM 3.7 mmol/L (3.5-5.1)
[2023-05-19 07:49] LABS: CALCIUM 7.6 mg/dL (8.5-10.1)
[2023-05-19 07:50] LABS: ALBUMIN 2.4 g/dl (3.4-5.0); BLOOD UREA NITROGEN 23.4 mg/dL (7-18)
[2023-05-19 07:53] LABS: CREATININE 1.1 mg/dL (0.55-1.3)
[2023-05-19 07:54] LABS: BILIRUBIN,TOTAL 0.6 mg/dL (0.2-1); TOT PROT 5.7 g/dl (6.4-8.2)
[2023-05-19] MEDS: APIXABAN 5 MG TABLET PO SCH ×2 (09:44→22:38)
[2023-05-19] MEDS: PANTOPRAZOLE 40 MG TABLET PO SCH (09:44)
[2023-05-19] MEDS: INSULIN (LEVEMIR) 100 UNITS/ML UNITS SQ SCH (09:44)
[2023-05-19] MEDS ORDERED: INSULIN (LEVEMIR) 100 UNITS/ML UNITS SQ ONE (10:03)
[2023-05-19] MEDS ORDERED: INSULIN SLIDING SCALE (NOVOLOG) 1 VIAL SQ ONE (16:47)
[2023-05-20] MEDS: PIPERACILLIN/TAZOB 3.375 GM 3.375 GM in DEXTROSE 5%-WATER - 50 ML IVPB SCH ×2 (02:17→09:30)
[2023-05-20] MEDS: INSULIN SLIDING SCALE (NOVOLOG) 1 VIAL SQ SCH ×4 (06:14→21:36)
[2023-05-20 07:06] LABS: BASO % 0.4 % (0-2.0); EOS % 2.5 % (0-4.5); HEMATOCRIT 35.4 % (35.4-49); HEMOGLOBIN 11.6 GM/dL (11.7-16.9); LYMPH % 33.5 % (8-40); MCHC 32.8 g/dl (32.0-35.9); MEAN CELL VOLUME 91.5 fl (80-96); MEAN PLT VOLUME 9.2 fl (7.5-11.1); MONO % 7.7 % (3.8-10.2); NEUT % 55.9 % (42.8-82.8); PLATELET COUNT 215 10^3/uL (134-434); RBC 3.88 M/mm3 (4.00-5.60); RDW 13.4 % (11.9-15.9); WHITE BLOOD COUNT 7.6 K/mm3 (4.0-10.0)
[2023-05-20 07:23] LABS: POTASSIUM 3.8 mmol/L (3.5-5.1)
[2023-05-20 07:25] LABS: CALCIUM 7.9 mg/dL (8.5-10.1)
[2023-05-20 07:26] LABS: ALBUMIN 2.6 g/dl (3.4-5.0); BLOOD UREA NITROGEN 15.5 mg/dL (7-18)
[2023-05-20 07:29] LABS: CREATININE 0.9 mg/dL (0.55-1.3)
[2023-05-20 07:31] LABS: BILIRUBIN,TOTAL 0.5 mg/dL (0.2-1)
[2023-05-20] MEDS: SODIUM CHLORIDE 1,000 ML IV SCH (09:30)
[2023-05-20] MEDS: PANTOPRAZOLE 40 MG TABLET PO SCH (09:31)
[2023-05-20] MEDS: APIXABAN 5 MG TABLET PO SCH ×2 (09:31→21:36)
[2023-05-20] MEDS: INSULIN (LEVEMIR) 100 UNITS/ML UNITS SQ SCH (09:31)
[2023-05-20] MEDS ORDERED: INSULIN (LEVEMIR) 100 UNITS/ML UNITS SQ ONE (09:44)
[2023-05-20] MEDS: NEBIVOLOL 5 MG TABLET (FP) PO SCH (12:07)
[2023-05-20] MEDS: BENZOCAINE/MENTH/CETYLPYRD CL 1 EACH LOZENGE MM PRN (16:58)
[2023-05-20] MEDS ORDERED: INSULIN SLIDING SCALE (NOVOLOG) 1 VIAL SQ ONE (17:01)
[2023-05-20] MEDS: CEFAZOLIN 1 GM in DEXTROSE 5%-WATER - 50 ML IVPB SCH (17:03)
[2023-05-20] MEDS: ACETAMINOPHEN 325 MG TABLET (FP) PO PRN (23:24)
[2023-05-21] MEDS: CEFAZOLIN 1 GM in DEXTROSE 5%-WATER - 50 ML IVPB SCH ×2 (01:47→10:10)
[2023-05-21 06:50] VITALS: RESP 19
[2023-05-21] MEDS: INSULIN SLIDING SCALE (NOVOLOG) 1 VIAL SQ SCH ×2 (06:50→11:35)
[2023-05-21 09:12] LABS: POTASSIUM 3.9 mmol/L (3.5-5.1)
[2023-05-21 09:19] LABS: ALBUMIN 2.7 g/dl (3.4-5.0); BLOOD UREA NITROGEN 10.8 mg/dL (7-18); CALCIUM 8.7 mg/dL (8.5-10.1)
[2023-05-21 09:24] LABS: BILIRUBIN,TOTAL 0.6 mg/dL (0.2-1); CREATININE 0.8 mg/dL (0.55-1.3); TOT PROT 6.4 g/dl (6.4-8.2)
[2023-05-21] MEDS: NEBIVOLOL 5 MG TABLET (FP) PO SCH (10:11)
[2023-05-21] MEDS: PANTOPRAZOLE 40 MG TABLET PO SCH (10:11)
[2023-05-21] MEDS: APIXABAN 5 MG TABLET PO SCH (10:11)
[2023-05-21] MEDS: ACETAMINOPHEN 325 MG TABLET (FP) PO PRN (10:11)
[2023-05-21] MEDS: INSULIN (LEVEMIR) 100 UNITS/ML UNITS SQ SCH (10:12)
[2023-05-21] MEDS: BENZOCAINE/MENTH/CETYLPYRD CL 1 EACH LOZENGE MM PRN (10:23)
[2023-05-21 13:46] VITALS: BP 135/76; PULSE 92; TEMP 98
== END 2023-05-21 13:53 | disposition home or self-care (01) | DRG 872 ==
LOC: JER 07:35 → JERBED 09:14 → J4S 11:44
PROVIDERS: ADMIT Internal Medicine; ATTEND Internal Medicine
DX: A41.9 Sepsis, unspecified organism (principal); N39.0 Urinary tract infection, site not specified; N17.9 Acute kidney failure, unspecified; I13.0 Hypertensive heart and chronic kidney disease with heart failure and stage 1 through stage 4 chronic kidney disease, or unspecified chronic kidney disease; I50.32 Chronic diastolic (congestive) heart failure; I48.91 Unspecified atrial fibrillation; E11.9 Type 2 diabetes mellitus without complications; N18.9 Chronic kidney disease, unspecified; B96.1 Klebsiella pneumoniae [K. pneumoniae] as the cause of diseases classified elsewhere; D72.829 Elevated white blood cell count, unspecified; E78.5 Hyperlipidemia, unspecified; K21.9 Gastro-esophageal reflux disease without esophagitis
CPT/HCPCS: 0241U-QW; 36415; 71045-TC-FY; 71250-TC; 76775-TC; 76856-TC; 80053; 80061; 81003; 82550; 82553; 82803; 82962; 83036; 83605; 83735; 83880; 84443; 84484; 85025; 85610; 85730; 86618; 86666; 86753; 86850; 86900; 86901; 87040; 87086; 87186; 93005; 93010; 99291

== ENCOUNTER 2023-09-25 09:18 | Emergency (ER) | payer BC, OTHER ==
[2023-09-25 09:31] VITALS: BMI 32.3
[2023-09-25] MEDS ORDERED: SODIUM CHLORIDE 1,000 ML IV ONE ×2 (09:38→11:54)
[2023-09-25 10:39] LABS: HEMATOCRIT 42.2 % (35.4-49); HEMOGLOBIN 14.1 GM/dL (11.7-16.9); MCH 30.6 pg (25.7-33.7); MCHC 33.4 g/dl (32.0-35.9); MEAN CELL VOLUME 91.4 fl (80-96); RBC 4.62 M/mm3 (4.00-5.60); RDW 13.8 % (11.9-15.9)
[2023-09-25 10:40] LABS: WHITE BLOOD COUNT 6.6 K/mm3 (4.0-10.0)
[2023-09-25 10:56] LABS: CHLORIDE 99 mmol/L (98-107); SODIUM 132 mmol/L (136-145)
[2023-09-25 10:58] LABS: ALBUMIN 3.2 g/dl (3.4-5.0); BLOOD UREA NITROGEN 22.7 mg/dL (7-18); CALCIUM 9.2 mg/dL (8.5-10.1); CO2 27 mmol/L (21-32); GLUCOSE,RANDOM 154 mg/dL (74-106)
[2023-09-25 11:01] LABS: CREATININE 1.4 mg/dL (0.55-1.3)
[2023-09-25 11:02] LABS: SGOT/AST 94 U/L (15-37)
[2023-09-25] MEDS ORDERED: CEFTRIAXONE 1,000 MG in DEXTROSE 5%-WATER - 50 ML IVPB ONE (11:02)
[2023-09-25 11:03] LABS: BILIRUBIN,TOTAL 0.8 mg/dL (0.2-1); TOT PROT 7.9 g/dl (6.4-8.2)
[2023-09-25 11:04] LABS: ALK PHOS 79 U/L (45-117); ANION GAP 6 mmol/L (4-13); POTASSIUM 6.3 mmol/L (3.5-5.1); SGPT/ALT 35 U/L (13-61)
[2023-09-25 11:12] LABS: PH,URINE 5.5 (5.0-8.0); URINE APPEARANCE CLEAR; URINE BILIRUBIN NEGATIVE (NEGATIVE); URINE COLOR YELLOW; URINE GLUCOSE (UA) NEGATIVE (NEGATIVE); URINE KETONE NEGATIVE (NEGATIVE); URINE LEUK ESTERASE NEGATIVE (NEGATIVE); URINE NITRITE NEGATIVE (NEGATIVE); URINE PROTEIN TRACE (NEGATIVE); URINE UROBILINOGEN 0.2 mg/dL (0.2-1.0)
[2023-09-25] MEDS ORDERED: CEFTRIAXONE 1 GM/50 ML BAG ONE (11:12)
[2023-09-25 11:15] LABS: LACTIC ACID 2.7 mmol/L (0.4-2.0)
[2023-09-25 11:26] LABS: EPI CELLS 5.6 /uL (0-25.1); HYALINE CASTS 1.55 /uL (0-3.1); URINE BACTERIA 6.7 /uL (0-1359); URINE RBC 9.4 /uL (0-23.9); URINE WBC 50.8 /uL (0-25.8)
[2023-09-25 12:13] VITALS: RESP 16
[2023-09-25 12:37] LABS: LACTIC ACID 2.1 mmol/L (0.4-2.0)
[2023-09-25 12:57] LABS: BLOOD UREA NITROGEN 21.4 mg/dL (7-18)
[2023-09-25 12:59] LABS: ANISOCYTOSIS 3+; MACROCYTOSIS 0; TARGET CELLS 1+
[2023-09-25 13:00] LABS: CREATININE 1.2 mg/dL (0.55-1.3)
[2023-09-25 15:17] VITALS: BP 154/86; PULSE 99; TEMP 98.1
== END 2023-09-25 15:23 | disposition home or self-care (01) ==
LOC: JER 09:18
DX: I95.9 Hypotension, unspecified (principal); E86.0 Dehydration; R74.02 Elevation of levels of lactic acid dehydrogenase [LDH]
CPT/HCPCS: 36415; 71045-TC-FY; 80048; 80053; 81003; 83605; 84484; 85025; 87040; 87086; 93005; 93010; 99285-25

== ENCOUNTER 2024-02-26 04:00 | Day surgery (SDC) | payer BC ==
[2024-02-25 17:56] VITALS: BMI 30.8
[2024-02-26] MEDS ORDERED: BUPIVACAINE HCL/PF 0.75% 10 ML VIAL ONE (07:26)
[2024-02-26] MEDS ORDERED: LIDOCAINE HCL/PF 1% SDV 5ML VIAL ONE (07:26)
[2024-02-26 08:23] VITALS: BP 141/84; PULSE 88; RESP 18; TEMP 98.3
[2024-02-26] MEDS: LIDOCAINE HCL 1% PRESERVATIVE FREE - 30ML VIAL IJ ONE ×3 (08:59→09:08)
[2024-02-26] MEDS: BUPIVACAINE HCL/PF 0.75% 10 ML VIAL NR ONE ×3 (09:05→09:16)
== END 2024-02-26 09:42 | disposition home or self-care (01) ==
LOC: JASU-SURG 04:00
PROVIDERS: ATTEND Pain Medicine Pain Medicine
PROC: 3E0T33Z Introduction of Anti-inflammatory into Peripheral Nerves and Plexi, Percutaneous Approach (ICD-10-PCS; 2024-02-26)
PROC: 3E0T3BZ Introduction of Anesthetic Agent into Peripheral Nerves and Plexi, Percutaneous Approach (ICD-10-PCS; principal; 2024-02-26 10:00)
DX: M47.816 Spondylosis without myelopathy or radiculopathy, lumbar region (principal)
CPT/HCPCS: 76000-TC-FY

== ENCOUNTER 2024-03-13 03:53 | Day surgery (SDC) | payer BC ==
[2024-03-07 08:24] VITALS: BMI 30.8
[2024-03-13 06:52] VITALS: TEMP 98
[2024-03-13] MEDS ORDERED: BUPIVACAINE HCL/PF 0.75% 10 ML VIAL ONE (07:13)
[2024-03-13] MEDS ORDERED: LIDOCAINE HCL/PF 2% SDV 5ML VIAL ONE (07:13)
[2024-03-13] MEDS ORDERED: LIDOCAINE HCL/PF 1% SDV 5ML VIAL ONE (07:13)
[2024-03-13] MEDS ORDERED: DEXAMETHASONE SOD PHOSPHATE 10 MG/1 ML VIAL ONE (07:14)
[2024-03-13 08:02] VITALS: BP 139/79; PULSE 84; RESP 18
[2024-03-13] MEDS ORDERED: ACETAMINOPHEN 500 MG TABLET (FP) PO PRN (16:42)
== END 2024-03-13 08:33 | disposition home or self-care (01) ==
LOC: JASU-SURG 03:53
PROVIDERS: ATTEND Pain Medicine Pain Medicine
PROC: 015B3ZZ Destruction of Lumbar Nerve, Percutaneous Approach (ICD-10-PCS; principal; 2024-03-13 07:22)
DX: M47.816 Spondylosis without myelopathy or radiculopathy, lumbar region (principal)
CPT/HCPCS: 76000-TC-FY; J1100

== ENCOUNTER 2024-04-23 06:26 | Day surgery (SDC) | payer BC ==
[2024-04-17 15:30] VITALS: BMI 30.8
[2024-04-23] MEDS: CYCLOPENTOLATE HCL 1% OPHTH SOLN 2 ML BOTTLE ONE (06:45)
[2024-04-23] MEDS: KETOROLAC TROMETHAMINE 0.5% EYE DROP 1 DROP DROPS ONE (06:45)
[2024-04-23] MEDS: OFLOXACIN 0.3% OPHTHALMIC SOLUTION 5 ML BOTTLE ONE (06:45)
[2024-04-23] MEDS: TROPICAMIDE 1% OPHTH SOLN 15 ML BOTTLE ONE (06:45)
[2024-04-23] MEDS: PHENYLEPHRINE 2.5% OPTHALMIC DROP 2ML BOTTLE ONE (06:45)
[2024-04-23 07:00] VITALS: RESP 18
[2024-04-23] MEDS ORDERED: LIDOCAINE 1% P/F 10 MG/ML VIAL ONE (07:13)
[2024-04-23] MEDS ORDERED: EPINEPHrine/PF 1 MG/1 ML (1:1,000) AMPULE ONE (07:13)
[2024-04-23] MEDS ORDERED: NEO/POLYMYX B SULF/DEXAMETH OPHTHALMIC 5ML BOTTLE ONE (07:14)
[2024-04-23] MEDS ORDERED: CARBACHOL 0.01% INTRA-OCULAR 1.5 ML VIAL ONE (07:14)
[2024-04-23] MEDS ORDERED: TETRACAINE 0.5% OPHTH SOLN 2 ML BOTTLE ONE (07:14)
[2024-04-23] MEDS ORDERED: BSS (NA/CA/MG/K) BALANCED SALT SOLUTION OPHTH SOLN 15 ML BOTTLE ONE (07:14)
[2024-04-23] MEDS ORDERED: MIDAZOLAM HCL 2 MG/2 ML SINGLE DOSE VIAL ONE ×2 (07:41→07:48)
[2024-04-23] MEDS ORDERED: SUCCINYLCHOLINE CHLORIDE 200 MG/10 ML SYRINGE ONE (07:45)
[2024-04-23 08:16] VITALS: TEMP 97.8
[2024-04-23 12:00] VITALS: BP 124/74; PULSE 89
== END 2024-04-23 08:40 | disposition home or self-care (01) ==
LOC: FASU 06:26
PROVIDERS: ATTEND Ophthalmology
PROC: 08RK3JZ Replacement of Left Lens with Synthetic Substitute, Percutaneous Approach (ICD-10-PCS; principal; 2024-04-23 07:46)
DX: H26.8 Other specified cataract (principal)
CPT/HCPCS: 66984; V2632

== ENCOUNTER 2024-11-26 09:43 | Inpatient (IN) | payer BC, OTHER ==
[2024-11-26 10:30] VITALS: BMI 37.5
[2024-11-26 10:55] LABS: BASO % 0.6 % (0-2.0); EOS % 2.1 % (0-4.5); HEMATOCRIT 37.1 % (35.4-49); HEMOGLOBIN 12.5 GM/dL (11.7-16.9); MCH 31.7 pg (25.7-33.7); MCHC 33.8 g/dl (32.0-35.9); MEAN CELL VOLUME 93.9 fl (80-96); MEAN PLT VOLUME 7.4 fl (7.5-11.1); MONO % 8.8 % (3.8-10.2); NEUT % 51.5 % (42.8-82.8); PLATELET COUNT 167 10^3/uL (134-434); RBC 3.95 M/mm3 (4.00-5.60); RDW 14.1 % (11.9-15.9); WHITE BLOOD COUNT 5.3 K/mm3 (4.0-10.0)
[2024-11-26 11:07] LABS: PH,URINE 6.5 (5.0-8.0); URINE APPEARANCE CLEAR; URINE BILIRUBIN NEGATIVE (NEGATIVE); URINE COLOR YELLOW; URINE GLUCOSE (UA) NEGATIVE (NEGATIVE); URINE KETONE NEGATIVE (NEGATIVE); URINE LEUK ESTERASE NEGATIVE (NEGATIVE); URINE NITRITE NEGATIVE (NEGATIVE); URINE PROTEIN NEGATIVE (NEGATIVE); URINE UROBILINOGEN 0.2 mg/dL (0.2-1.0)
[2024-11-26 11:25] LABS: POTASSIUM 3.9 mmol/L (3.5-5.1)
[2024-11-26 11:26] LABS: CALCIUM 8.6 mg/dL (8.5-10.1); URINE RBC 41 /uL (0-23.9)
[2024-11-26 11:27] LABS: ALBUMIN 3.1 g/dl (3.4-5.0); EPI CELLS 1.2 /uL (0-25.1); HYALINE CASTS 0.13 /uL (0-3.1); URINE BACTERIA 0 /uL (0-1359); URINE WBC 0.9 /uL (0-25.8)
[2024-11-26 11:29] LABS: BLOOD UREA NITROGEN 21.7 mg/dL (7-18)
[2024-11-26 11:32] LABS: TOT PROT 7.2 g/dl (6.4-8.2)
[2024-11-26 11:33] LABS: BILIRUBIN,TOTAL 0.7 mg/dL (0.2-1)
[2024-11-26] MEDS ORDERED: ASPIRIN 325 MG TABLET ONE (15:22)
[2024-11-26] MEDS: ASPIRIN 325 MG TABLET PO ONE (15:30)
[2024-11-26] MEDS: APIXABAN 5 MG TABLET PO SCH (21:17)
[2024-11-26] MEDS: NEBIVOLOL 5 MG TABLET (FP) PO SCH (21:17)
[2024-11-26] MEDS: ATORVASTATIN CA 10 MG TABLET (FP) PO SCH (21:17)
[2024-11-26] MEDS: SACUBITRIL/VALSARTAN 24 MG-26 MG TABLET PO SCH (21:17)
[2024-11-27] MEDS: INSULIN (LEVEMIR) 100 UNITS/ML UNITS SQ SCH (10:50)
[2024-11-27 13:43] VITALS: RESP 16
[2024-11-27 14:12] VITALS: BP 107/73; PULSE 88; TEMP 97.4
== END 2024-11-27 15:12 | disposition home or self-care (01) | DRG 69 ==
LOC: JER 09:43 → JERBED 13:05 → J4S 16:42
PROVIDERS: ADMIT Internal Medicine; ATTEND Internal Medicine
DX: G45.9 Transient cerebral ischemic attack, unspecified (principal); I48.0 Paroxysmal atrial fibrillation; I10 Essential (primary) hypertension; E11.9 Type 2 diabetes mellitus without complications; E78.5 Hyperlipidemia, unspecified
CPT/HCPCS: 0241U-QW; 70450-TC; 70496-TC; 70498-TC; 70551-TC; 80053; 80061; 81003; 82550; 82962; 83036; 84484; 85025; 86850; 86900; 86901; 93005; 93010; 93306-TC; 93880-TC; 99285-25; Q9967

== ENCOUNTER 2025-03-20 09:33 | Emergency (ER) | payer BC ==
[2025-03-20 09:50] VITALS: TEMP 98; BMI 26.5
[2025-03-20] MEDS ORDERED: morphine SULFATE 4 MG/ML VIAL ONE ×2 (10:27→11:06)
[2025-03-20] MEDS: morphine SULFATE 4 MG/ML VIAL IVPUSH ONE (10:39)
[2025-03-20 10:52] LABS: HEMOGLOBIN 11.3 g/dL (13.7-17.5); RDW 13.7 % (12.2-16.6)
[2025-03-20 10:54] LABS: HEMATOCRIT 34.9 % (40.1-51.0); MCHC 32.4 g/dl (32.3-36.5); MEAN CELL VOLUME 97.8 fl (79.0-92.2); MEAN PLT VOLUME 9.6 fl (9.4-12.4); PLATELET COUNT 174 x10^3/uL (163-337)
[2025-03-20 11:00] LABS: INR 1.57 (0.83-1.09); PROTHROMBIN TIME (PATIENT) 17.3 SEC (9.7-13.0)
[2025-03-20 11:02] LABS: ACTIVATED PTT 42.8 SECONDS (25.2-36.5)
[2025-03-20] MEDS ORDERED: ONDANSETRON 4 MG/2 ML VIAL ONE (11:07)
[2025-03-20] MEDS: morphine CARPU-JECT 4 MG/1 ML DISP.SYRIN IVPUSH ONE (11:21)
[2025-03-20] MEDS: ONDANSETRON 4 MG/2 ML VIAL IVPUSH ONE (11:21)
[2025-03-20 11:31] LABS: CHLORIDE 106 mmol/L (98-107); POTASSIUM 5.1 mmol/L (3.5-5.1); SODIUM 140 mmol/L (136-145)
[2025-03-20 11:34] LABS: ALBUMIN 3.3 g/dl (3.4-5.0); ANION GAP 5 mmol/L (4-13); BLOOD UREA NITROGEN 19.7 mg/dL (7-18); CALCIUM 9.5 mg/dL (8.5-10.1); CO2 29 mmol/L (21-32); GLUCOSE,RANDOM 155 mg/dL (74-106)
[2025-03-20 11:36] LABS: SGOT/AST 18 U/L (15-37); SGPT/ALT 20 U/L (13-61)
[2025-03-20 11:37] LABS: CREATININE 1.1 mg/dL (0.55-1.3)
[2025-03-20 11:39] LABS: ALK PHOS 84 U/L (45-117); BILIRUBIN,TOTAL 0.7 mg/dL (0.2-1)
[2025-03-20 11:55] LABS: EPI CELLS 2 /uL (0-25.1); HYALINE CASTS 0 /uL (0-3.1); URINE APPEARANCE CLEAR; URINE BACTERIA 2 /uL (0-1359); URINE BILIRUBIN NEGATIVE (NEGATIVE); URINE COLOR YELLOW; URINE GLUCOSE (UA) NEGATIVE (NEGATIVE); URINE KETONE NEGATIVE (NEGATIVE); URINE LEUK ESTERASE NEGATIVE (NEGATIVE); URINE NITRITE NEGATIVE (NEGATIVE); URINE PROTEIN 1+ (NEGATIVE); URINE RBC 36 /uL (0-23.9); URINE UROBILINOGEN 0.2 mg/dL (0.2-1.0); URINE WBC 7 /uL (0-25.8)
[2025-03-20 12:20] LABS: TOT PROT 7.6 g/dl (6.4-8.2)
[2025-03-20] MEDS ORDERED: HYDROmorphone HCL CARPU-JECT 2 MG/1 ML DISP.SYRIN ONE (12:48)
[2025-03-20] MEDS: HYDROmorphone HCl 2 MG/ML VIAL IVPUSH ONE (13:01)
[2025-03-20 16:48] VITALS: RESP 16
[2025-03-20] MEDS ORDERED: KETOROLAC TROMETHAMINE 15 MG/ML VIAL ONE (16:50)
[2025-03-20] MEDS ORDERED: ACETAMINOPHEN INJECTION 100 ML ONE (16:50)
[2025-03-20] MEDS: ACETAMINOPHEN 1000 MG/100 ML BAG IVPB ONE (16:56)
[2025-03-20] MEDS: KETOROLAC TROMETHAMINE 15 MG/ML VIAL IVPUSH ONE (16:56)
[2025-03-20] MEDS ORDERED: ONDANSETRON 4 MG/2 ML VIAL IVPUSH PRN (17:06)
[2025-03-20] MEDS ORDERED: LIDOCAINE 4% PATCH TP ONE (17:09)
[2025-03-20] MEDS ORDERED: KETOROLAC TROMETHAMINE 30 MG/1 ML VIAL IVPUSH PRN (17:10)
[2025-03-20] MEDS ORDERED: ACETAMINOPHEN 325 MG TABLET (FP) PO PRN (17:11)
[2025-03-20] MEDS: LIDOCAINE 4% PATCH TP ONE (17:16)
[2025-03-20 18:24] VITALS: BP 128/90; PULSE 84
[2025-03-20] MEDS ORDERED: NEBIVOLOL 5 MG TABLET (FP) PO SCH (22:00)
[2025-03-20] MEDS ORDERED: SACUBITRIL/VALSARTAN 49 MG-51 MG TABLET PO SCH (22:00)
[2025-03-20] MEDS ORDERED: INSULIN ASPART SLIDING SCALE (NOVOLOG) 1 VIAL SQ SCH ×2 (22:00)
[2025-03-20] MEDS ORDERED: ATORVASTATIN CA 10 MG TABLET (FP) PO SCH (22:00)
[2025-03-20] MEDS ORDERED: APIXABAN 2.5 MG TABLET PO SCH (22:00)
[2025-03-20] MEDS ORDERED: LIDOCAINE PATCH REMOVAL MC SCH (22:00)
[2025-03-21] MEDS ORDERED: INSULIN GLARGINE (LANTUS) 100 UNITS/ML UNITS SQ SCH (07:00)
[2025-03-21] MEDS ORDERED: IRON PO SCH (10:00)
[2025-03-21] MEDS ORDERED: MULTIVIT MINS PO SCH (10:00)
[2025-03-21] MEDS ORDERED: MULTIVITAMINS (DAILY MVI) TABLET (FP) PO SCH (10:00)
[2025-03-21] MEDS ORDERED: [UNRECOGNIZED DRUG - OTHER] PO SCH (10:00)
[2025-03-21] MEDS ORDERED: FOLIC PO SCH (10:00)
[2025-03-21] MEDS ORDERED: LYCOP PO SCH (10:00)
== END 2025-03-20 18:10 | disposition home or self-care (01) ==
LOC: JER 09:33 → UNDOADMIN 17:03 → JERBED 17:03 → JER 18:10
PROC: 3E033NZ Introduction of Analgesics, Hypnotics, Sedatives into Peripheral Vein, Percutaneous Approach (ICD-10-PCS; principal; 2025-03-20)
PROC: 3E033NZ Introduction of Analgesics, Hypnotics, Sedatives into Peripheral Vein, Percutaneous Approach (ICD-10-PCS; 2025-03-20)
PROC: 3E0333Z Introduction of Anti-inflammatory into Peripheral Vein, Percutaneous Approach (ICD-10-PCS; 2025-03-20)
PROC: 3E033NZ Introduction of Analgesics, Hypnotics, Sedatives into Peripheral Vein, Percutaneous Approach (ICD-10-PCS; 2025-03-20)
PROC: 3E033GC Introduction of Other Therapeutic Substance into Peripheral Vein, Percutaneous Approach (ICD-10-PCS; 2025-03-20)
PROC: 3E033NZ Introduction of Analgesics, Hypnotics, Sedatives into Peripheral Vein, Percutaneous Approach (ICD-10-PCS; 2025-03-20)
DX: M48.061 Spinal stenosis, lumbar region without neurogenic claudication (principal); M54.50 Low back pain, unspecified; G89.29 Other chronic pain
CPT/HCPCS: 36415; 72149-TC; 80053; 81003; 82962; 85025; 85610; 85730; 86140; 86850; 86900; 86901; 87086; 99285-25; A9576